=== PATIENT | female | born 1950 | race Caucasian/White ===

== ENCOUNTER → 2022-11-08 | Outpatient (CLI) | payer MEDICARE, OTHER, SELFPAY ==
[2022-11-08 15:51] LABS: Bacteria 0 SEEN /hpf (None Seen); Mucous, Urine 0 SEEN /hpf (<or=2+); Red Blood Cells-Urine 0 SEEN /hpf (0-5); White Blood Cells 0 SEEN /hpf (0-5)
[2022-11-08 16:25] LABS: Color, Urine Yellow (Yellow); Glucose, Dipstick 1000 mg/dl (Normal); Ketone-Dipstick Negative (Negative); Leukocyte Esterase-Dipstick Negative /ul (Negative); Nitrite-Dipstick Negative (Negative); Occult Blood-Urine Negative /ul (Negative); Protein-Dipstick Negative (Negative); Specific Gravity, Urine 1.015 (1.002-1.030); Urine Bilirubin Dipstick Negative (Negative); Urine Clarity Clear (Clear); Urine Urobilinogen Normal (Normal)
[2022-11-08 16:32] LABS: Squamous Epithelial Cells - UA 0-5 SEEN /hpf (5-10)
[2022-11-08 17:13] LABS: ALB/GLOB Ratio 0.9 RATIO (0.9-2.4); AST(SGOT) 16 U/L (15-37); Alanine Aminotransfer ALT/SGPT 21 U/L (13-56); Albumin, Serum 3.5 g/dL (3.2-5.0); Alkaline Phosphatase 68 U/L (45-117); Anion Gap 4 (5-15); BUN 20 mg/dL (7-18); BUN/Creat Ratio 18.3 RATIO (10-20); Calcium,Total 9.3 mg/dL (8.5-10.1); Chloride 104 mmol/L (98-107); Creatinine, Serum 1.09 mg/dL (0.55-1.02); EST Glomerular Filtration Rate 52 mL/min (>60); Est Glom Filt Rate - Afr Amer 63 mL/min (>60); Globulin 4.1 g/dL (2.2-4.2); Glucose 179 mg/dL (74-106); Magnesium 1.9 mg/dL (1.6-2.6); Potassium 3.8 mmol/L (3.5-5.1); Protein, Total 7.6 g/dL (6.4-8.2); Sodium Level 137 mmol/L (136-145)
== END | disposition home or self-care (01) ==
LOC: LAB 15:48
PROVIDERS: PCP Internal Medicine; Referring Provider Internal Medicine; Visit Provider Internal Medicine
DX: E11.9 Type 2 diabetes mellitus without complications (principal); G47.62 Sleep related leg cramps
CPT/HCPCS: 36415; 80053; 81001; 83735

== ENCOUNTER → 2023-05-01 | Outpatient (CLI) | payer MEDICARE, OTHER, SELFPAY ==
[2023-05-01 09:44] LABS: Absolute Lymphocyte Count 1.69 X10^3/uL (0.83-4.51); Absolute Neutrophil Count 5.3 X10^3/uL (2.0-7.7); Basophil# 0.04 X10^3/uL; Basophil% 0.5 % (0-1); Eosinophil# 0.21 X10^3/uL; Eosinophils% 2.7 % (0-5); Hematocrit 37.5 % (37-47); Hemoglobin 11.7 g/dL (12.0-15.0); Lymphocyte # 1.69 X10^3/ul (0.83-4.51); Lymphocyte % 21.8 % (19-41); Mean Corp Hgb Conc 31.2 g/dL (32-36); Mean Corpuscular Hgb 31.1 pg (27.0-32.0); Mean Corpuscular Volume 99.7 fL (81-99); Mean Platelet Vol. 10.3 fl (6.2-12.0); Monocyte# 0.52 X10^3/uL; Monocyte% 6.7 % (0-10); NRBC Flagged by Analyzer 0 % (0-5); Neutrophil # 5.28 X10^3/uL (2.7-7.7); Neutrophil % 67.9 % (47-70); Platelet Count 350 K/mm3 (150-450); RBC Distribution Width CV 13.4 % (11.6-14.6); RBC Distribution Width SD 49.2 fl (35.1-43.9); Red Blood Count 3.76 M/mm3 (4.2-5.4); White Blood Count 7.8 K/mm3 (4.4-11.0)
[2023-05-01 10:28] LABS: Vitamin D,25 Hydroxy 42.4 ng/mL
[2023-05-01 10:33] LABS: ALB/GLOB Ratio 0.8 RATIO (0.9-2.4); AST(SGOT) 9 U/L (15-37); Alanine Aminotransfer ALT/SGPT 20 U/L (13-56); Albumin, Serum 3.4 g/dL (3.2-5.0); Alkaline Phosphatase 69 U/L (45-117); Anion Gap 5 (5-15); BUN 25 mg/dL (7-18); BUN/Creat Ratio 21.2 RATIO (10-20); Calcium,Total 9.1 mg/dL (8.5-10.1); Chloride 106 mmol/L (98-107); Cholesterol 139 mg/dL (200); Creatinine, Serum 1.18 mg/dL (0.55-1.02); EST Glomerular Filtration Rate 48 mL/min (>60); Est Glom Filt Rate - Afr Amer 58 mL/min (>60); Free T3 1.7 pg/mL (2.18-3.98); Globulin 4.2 g/dL (2.2-4.2); Glucose 111 mg/dL (74-106); High Density Lipoprotein 35 mg/dL; Magnesium 2.1 mg/dL (1.6-2.6); Protein, Total 7.6 g/dL (6.4-8.2); Sodium Level 139 mmol/L (136-145); Thyroid Stim Hormone (TSH) 0.71 uIU/mL (0.358-3.74); Triglycerides 199 mg/dL; Very Low Density Lipoprotein 40 mg/dL (5-40)
== END | disposition home or self-care (01) ==
LOC: LAB 09:24
PROVIDERS: PCP Internal Medicine; Referring Provider Internal Medicine; Visit Provider Internal Medicine
DX: R73.9 Hyperglycemia, unspecified (principal); C73 Malignant neoplasm of thyroid gland; I10 Essential (primary) hypertension; E89.0 Postprocedural hypothyroidism; Z13.220 Encounter for screening for lipoid disorders; E55.9 Vitamin D deficiency, unspecified; G47.33 Obstructive sleep apnea (adult) (pediatric)
CPT/HCPCS: 36415; 80053; 80061; 82306; 83036; 83735; 84439; 84443; 84481; 85025

== ENCOUNTER → 2023-10-05 | Outpatient (CLI) | payer MEDICARE, OTHER, SELFPAY ==
--- NOTE | 2023-10-05 10:30 | BI_ITS ---
MAMMOGRAPHY - BILATERAL SCREENING REASON FOR EXAM: Female, 72 years old. Routine annual screening examination. PERTINENT HISTORY: Non-contributory. TECHNIQUE: Digital bilateral breast pratik (3D mammographic acquisition) in the CC and MLO projections. 2-D mediolateral oblique (MLO) and craniocaudad (CC) views of both breasts were obtained. CAD: Full Field Digital Mammography with Computer Added Detection was performed. COMPARISON: Comparison is made with prior outside examination dated August 30, 2021. FINDINGS: Breast Composition: The breasts are almost entirely fatty. There are no dominant masses or suspicious calcifications. No other significant abnormalities are identified. There has been no significant change since the prior study. BI/SCRN MAMM (CAD)W/PRATIK BILAT IMPRESSION: Stable bilateral screening mammogram. Yearly follow-up mammogram recommended. (A) ASSESSMENT CATEGORY: BIRADS Category 1: Negative. A letter regarding these results will be sent to the patient by the facility within 30 days. Approximately 10% of breast cancers are not detected by mammography. A normal mammogram should not delay biopsy of a clinically suspicious abnormality. [id number] Electronically Signed: Ben Eng MD at 11:08 EDT ,
--- OUTSIDE RECORDS SUMMARY | 2023-10-05 11:21 | XMS RPT_ITS | CCD ---
Author Name Unknown Address [address] [place] [address] Organization [facility] Care Team Providers Care Unattended Ground Sensor Specialist Name Role Phone Steve Cheek Unavailable Unavailable Unavailable Steve Cheek Primary Care Provider Steve Cheek Primary Care Provider [phone] Steve Cheek Primary Care Provider Dr. Keara Mike Attending Unav stephen Mike, Dr. Keara Velazco Primary Care Unav ailGRAEME Ayala Referring Unavailable GRAEME ESTEVEZ Attending Unavailable STEVE CHEEK Primary Care Unavailable LILIANA JAMA Attending Unavailable STEVE CHEEK Primary Care Unavailable LILIANA JAMA Referring Unavailable STEVE CHEEK Primary Care Unavailable LILIANA JAMA Attending Unavailable STEVE CHEEK Primary Care Unavailable LILIANA JAMA Referring Unavailable STEVE CHEEK Primary Care Unavailable LILIANA JAMA Attending Unavailable YELENA STOUT Referring Unavailable STEVE CHEEK Primary Care Unavailable STEVE CHEEK Primary Care Unavailable LILIANA JAMA Referring Unavailable STEVE CHEEK Primary Care Unavailable LILIANA JAMA Referring Unavailable Allergies Allergy Classification Reported Allergen(s) Allergy Type Date of Onset Reaction(s) Facility (10 sources) environmental [Other] Propensity to adverse reactions 1 Other: See Comments [facility] Work Phone: (1 source) OTHER; Translations: [OTHER] Propensity to adverse reactions (disorder) 1 [facility] Repository Medications Completed/Discontinued Medications Medication Drug Class(es) Dates Sig (Normalized) Sig (Original) aspirin 81 mg delayed release oral tablet (12 sources) Platelet Aggregation Inhibitor, Nonsteroidal Anti-inflammatory Drug Start: 02-13-2012 take 1 tablet by mouth once daily aspirin, enteric coated (ECOTRIN LOW STRENGTH) 81 mg EC tablet Take 1 tablet by mouth once daily. 0 02/13/2012 Active Problems Active Problems Problem Classification Problem Date Documented Date Episodic/Chronic Benign neoplasm of uterus (2 sources) Uterine leiomyoma; Translations: [Leiomyoma of uterus, unspecified] Episodic Calculus of urinary tract (2 sources) History of calculus of kidney; Translations: [Personal history of urinary calculi] Episodic Cancer of thyroid (17 sources) Malignant tumor of thyroid gland; Translations: [Malignant neoplasm of thyroid gland] Onset: 06-24-2010 07-26-2015 Chronic Chronic kidney disease (2 sources) Chronic kidney disease stage 3; Translations: [Chronic kidney disease, Stage III (moderate)] Chronic Complications of surgical procedures or medical care (2 sources) Postoperative hypothyroidism; Translations: [Postsurgical hypothyroidism] Chronic Deficiency and other anemia (2 sources) Chronic anemia; Translations: [Anemia, unspecified] Episodic Diabetes mellitus with complications (8 sources) Hyperglycemia due to type 2 diabetes mellitus; Translations: [Diabetes mellitus without mention of complication, type II or unspecified type, not stated as uncontrolled] Onset: 09-06-2023 09-06-2023 Chronic Past or Other Problems Problem Classification Problem Date Documented Date Episodic/Chronic Cancer of thyroid (2 sources) History of malignant neoplasm of thyroid; Translations: [Personal history of malignant neoplasm of thyroid] Resolved: 08-12-2019 Episodic Other connective tissue disease (2 sources) History of polymyalgia rheumatica; Translations: [Personal history of other musculoskeletal disorders] Resolved: 08-12-2019 Episodic Residual codes; unclassified (4 sources) Past history of procedure; Translations: [Other specified personal history presenting hazards to health] Onset: 06-17-2010 Episodic Results Test Name Value Interpretation Reference Range Facil ity Vital Signs Date Time Vital Sign Value Performing Clinician Roger ruffin 09-15-2022 09:53-0500 Body weight 96.16 kg Liliana Jama MD Work Phone: [facility] 09-15-2022 09:53-0500 Diastolic blood pressure 68 mm[Hg] Liliana Jama MD Work Phone: [facility] 09-15-2022 09:53-0500 Heart rate 78 /min Liliana Jama MD Work Phone: [facility] 09-15-2022 09:53-0500 Systolic blood pressure 132 mm[Hg] Liliana Jama MD Work Phone: [facility] 03-17-2022 09:52-0400 Body weight 94.03 kg Liliana Jama MD Work Phone: [facility] 03-17-2022 09:52-0400 Diastolic blood pressure 57 mm[Hg] Liliana Jama MD Work Phone: [facility] 03-17-2022 09:52-0400 Heart rate 79 /min Liliana Jama MD Work Phone: [facility] 03-17-2022 09:52-0400 Systolic blood pressure 146 mm[Hg] Liliana Jama MD Work Phone: [facility] 12-28-2021 16:02-0400 Body weight 96.84 kg Liliana Jama MD Work Phone: [facility] 12-28-2021 16:02-0400 Diastolic blood pressure 68 mm[Hg] Liliana Jama MD Work Phone: [facility] 12-28-2021 16:02-0400 Heart rate 76 /min Liliana Jama MD Work Phone: [facility] 12-28-2021 16:02-0400 Systolic blood pressure 152 mm[Hg] Liliana Jama MD Work Phone: [facility] Encounters Encounter Date Encounter Type Care Provider Facility Start: 09-06-2023 Telephone encounter Liliana cabrera MD Work Phone: Endocrinology Irene Procedures Date Procedure Procedure Detail Performing Clinician Start: 09-15-2022 Us soft tissue head & neck real time imge docm Liliana Jama MD Work Phone: Start: 09-15-2022 Hemoglobin A1c/Hemoglobin.total in Blood Liliana Jama MD Work Phone: Start: 09-06-2022 Mammography Liliana velazquez MD Work Phone: Start: 03-20-2016 Colonoscopy Liliana velazquez MD Work Phone: Start: 03-20-2016 Colonoscopy Steve arndt Work Phone: Start: 07-06-2011 Mammography Liliana velazquez MD Work Phone: Start: 02-20-2011 Colonoscopy Liliana velazquez MD Work Phone: Thyroidectomy Steve Cheek Work Phone: Plan of Treatment Date Care Activity Detail Author Start: 08-21-2024 Hepatitis B screening Urine Albumin:Creatinine Ratio [facility] Start: 07-14-2024 Urine microalbumin profile DTaP,Tdap,Td Vaccine (2 - Tdap) [facility] Start: 03-06-2024 End: 06-05-2024 EXTRA TUBES EXTRA TUBES Lab STAT Thyroid cancer (HCC) Expected: 03/06/2024 (Approximate), Expires: 06/05/2024 [facility] Work Phone: Immunizations Immunization Date Immunization Notes Care Provider Elijah hu 05-17-2022 influenza virus vacc ine, unspecified formulation Liliana Jama MD Work Phone: [facility] 10-12-2020 Pfizer-BioNTech COVI D-19 Vacc 30 MCG/0.3ML Intramuscular Suspension Steve Cheek Work Phone: [facility] DO Work Phone: 09-20-2020 Pfizer-BioNTech COVI D-19 Vacc 30 MCG/0.3ML Intramuscular Suspension Steve Cheek Work Phone: [facility] 205 DO Work Phone: 05-27-2020 Fluzone High-Dose Quadrivalent 0.7 ML Intramuscular Suspension Prefilled Syringe; Translations: [Fluzone High-Dose Quadrivalent 0.7 ML Intramuscular Suspension Prefilled Syringe] Steve Cheek Work Phone: [facility] 205 DO Work Phone: Payers Date Payer Category Payer Unknown [id number] 2019 Unknown 2019 Unknown MMO MMO MEDICARE SUPPLEMENT [id number] 2019-Present [phone] [address] [place] [address] Indemnity [id number] 2017 Medicare MEDICARE MEDICAR E A AND B [id number] 2017-Present [phone] [address] [address] [place] [address] Medicare [id number] 2017 Medicare MEDICARE MEDICAR E A AND B [id number] 2017-Present [phone] [address] [address] [place] [address] Medicare [id number] 2014 Medicare [id number] 1950 Unknown [id number] 1950 Unknown [id number] 1950 Unknown [id number] Social History Date Type Detail Facility Start: 12-26-2011 End: 06-27-2020 Occasional caffeine consumption Occasional caffeine consumption [facility] DO Work Phone: Start: 12-26-2011 End: 03-17-2022 Tobacco smoking status NHIS Ex-smoker [facility] Work Phone: End: 12-26-1979 History of tobacco use Current smoker [facility] Work Phone: End: 12-26-1979 History of tobacco use Cigarette Smoker [facility] Work Phone: Start: 12-26-2011 End: 03-17-2022 Tobacco use and exposure Smokeless tobacco non-user [facility] Work Phone: Start: 12-28-2021 End: 03-17-2022 Alcohol intake Current non-drinker of alcohol (finding) [facility] Start: 1950 Sex Assigned At Not on file [facility] Start: 06-27-2020 End: 03-17-2022 Tobacco use panel [facility] National Score (1-10 0), lower number is lower risk Not on file [facility] Medical Equipment Procedure Code Equipment Code Equipment Origin al Text Equipment Identifier Dates use 4x/d with insulin pen Start: 09-16-2021 End: 03-15-2023 Clinical Notes 12-28-2021 to 09-10-2023 Telephone Encounter - Kyle Campoverde - 09/10/2023 12:38 PM ESTTelephone Encounter - Kyle Campoverde - 09/07/2023 12:22 PM ESTTelephone Encounter - Bernice Soler - 09/06/2023 1:26 PM EST Note Date & Type Note Facility 09-10-2023 Miscellaneous Notes Formattin g of this note might be different from the original. Patient scheduled 2nd attempt Left message to call office to schedule with Evita 09/07/2023 12:22 PM 1st attempt Vm left Please call patient and help them make virtual appointment with me in 3 months, and in-person appointment in 6 months documented in this encounter [facility] 09-06-2023 Note HNO ID: [id number] Author: LILIANA JAMA MD Service: ? Author Type: Physician Type: Progress Notes Filed: 09/06/2023 12:59 Note Text: Virtual Visit utilizing both audio and video components FaceTime I have communicated my name and active licensure. The patient's identity and physical location were verified at the time of this visit. Either the patient or their legal appliance service representative has been informed of the risks and benefits of -- and alternatives to -- treatment through a remote evaluation and consents to proceed with the evaluation remotely. Patient location: [place], [place] Assessment / Plan Problem: 1) Diabetes type 2. HbA1c continues to be reasonable, will keep her on current Rx. 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 from [place] on 07/09/23. 2) Thyroid CA, TG by QUINTIN has been stable, but this last 2 times was checked using new assay at [facility], which shows that TG was undetectable. Will go back to checking TG by QUINTIN at [facility] 3) s/p COVID vaccination x 5 ([employer]), including bivalent 04/12/22. COVID April 2020. Treatment / Plan: 1) increase Basaglar to 26 units daily at noon 2) [place] [facility] [place] [facility] [place] by virtual visit 3) [place] to [facility] [place] 6 months in person, with labs beforehand Liliana Jama MD iPhone = [employer] [phone] Data Review: Component Latest Ref Rng AND Units 08/02/2023 08/21/2023 Protein, Total 6.3 - 8.0 g/dL 7.5 Albumin 3.9 - 4.9 g/dL 4.2 Calcium 8.5 - 10.2 mg/dL 9.7 Bilirubin, Total 0.2 - 1.3 mg/dL 0.2 Alkaline Phosphatase 34 - 123 U/L 72 AST 13 - 35 U/L 10 (L) ALT 7 - 38 U/L 10 Glucose 74 - 99 mg/dL 143 (H) BUN 7 - 21 mg/dL 29 (H) Creatinine 0.58 - 0.96 mg/dL 1.09 (H) Sodium 136 - 144 mmol/L 140 Potassium 3.7 - 5.1 mmol/L 4.0 Chloride 97 - 105 mmol/L 102 CO2 22 - 30 mmol/L 25 Anion Gap 9 - 18 mmol/L 13 eGFR >=60 mL/min/1.73mA? 54 (L) Albumin/Creat Ratio <30 mg/g 17 Hemoglobin A1C 4.3 - 5.6 % 7.7 (H) Free T4 0.9 - 1.7 ng/dL 1.5 TSH 0.270 - 4.200 mIU/L 1.630 History Problem name: diabetes Quality: type 2, Severity: sugars in Duration: dx 1999 Context: 1) eye exam, told no DM changes, around 04/2021 2) no hx [place], stroke, no known renal disease, 3) no resting acral dysesthesias. Nonsmoker 4) severe BENEDICT, uses CPAP every day, says it helps 5) thyroid CA, history shown below, taking 125 mcg daily 6) hx COVID dx [place] 04/29/20 Modifying factors: 1) Basaglar 24 units at lunch, meal Humalog=01-30-11, metformin ER 850mg 3x/d, Farxiga 10mg in AM 2) pravastatin 80mg at bed, 3) losartan 100mg/d 4) levothyroxine 125mcg daily Associated symptoms: says feels good. s/p COVID vaccine x 5 Thyroid CA History Surgery (05/17/10): total thyroidectomy, Dr. Julio Cesar Moore (02/08/12): right modified radical neck dissection to remove lymph nodes, Dr. Jef Hardy Pathology (05/17/10): papillary thyroid CA, follicular variant, multifocal bilateral, 1.5cm on right, 0.3 and 0.4cvm on left, capsular invasion present, but no invasion outside the thyroid capsule. T1b, N0, MX (11/24/11): right neck node FNA, positive for malignant cells: metastatic papillary thyroid CA (02/08/12): right mod rad neck dissection: metastatic papillary thyroid CA, 4 of 14 nodes positive, no extranodal extension identified, largest involved node 1.2cm diameter Scan (09/23/10): post-therapy 131-Iodine scan, focal uptake in lower neck, no evidence of metastasis, Thyrogen stim (10/16/12): Thyrogen stimulated 123-Iodine body scan, no evidence of local or distant metastasis [facility] (09/15/10): treatment 101.0 mCi 131-Iodine, Thyrogen stim Thyroglobulin (06/02/10): TG <0.5 ng/ml, Oy=692 IU/ml (09/15/10): TG QUINTIN=6.0 ng/ml, Ab=20 U/ml, Thyrogen stim (01/03/11): TG QUINTIN=3.3 ng/ml, Ab=26 U/ml (08/01/11): TG QUINTIN=3.0 ng/ml, Ab=17 U/ml (02/01/12): TG QUINTIN=2.6 ng/ml, Ab=19 U/ml (06/11/12): TG QUINTIN=12.0 ng/ml, Na=201 IU/ml done at [facility] (doubt these results) (10/18/12): TG QUINTIN=3.0 ng/ml, Ab=10.3 U/ml, Thyrogen stim (11/04/12): TG QUINTIN=2.9 ng/ml, Ab=13.2 U/ml (04/29/13): TG QUINTIN=2.5 ng/ml, Ab=10.0 U/ml (11/28/13): TG QUINTIN=2.5 ng/ml, Ab=15.0 U/ml (06/12/14): TG QUINTIN=2.8 ng/ml, Ab=14.0 U/ml (12/11/14): TG QUINTIN=2.6 ng/ml, Ab=14.4 U/ml (06/21/15): TG QUINTIN=2.50 ng/ml, Ab=19.0 U/ml (12/27/15): TG QUINTIN=2.50 ng/ml, Ab=24.0 U/ml (12/27/16): TG QUINTIN=2.60 ng/ml, Ab=19.0 U/ml (06/27/17): TG QUINTIN=2.70 ng/ml, Ab=19 U/ml Component Thyroglobulin TG Antibody Screen Ref Rng 1.6 - 59.9 ng/mL <14.4 IU/mL 01/01/2018 QUINTIN at [facility] <0.2 (L) 86.0 (H) 06/06/18 2.20 20.0 12/17/18 <0.2 77.1 01/30/19 2.00 21.0 07/03/2019 2.80 21.0 01/06/2020 2.70 28.0 01/06/2020 2.50 30.0 01/25/2021 2.20 23.0 08/12/2021 2.80 28.0 01/31/2022 Flor Assay 2.20 25.0 08/18/2022 <0.5 13.8 02/26/2023 <0.5 14.5 Vitamin D Component Vitamin D 25 Hydroxy Latest Ref Rng 31.0 - 80.0 ng/mL 04/29/2013 48.5 11/28/2013 38.5 11 (more content not included)... [facility] 09-06-2023 Instructions Liliana Jama MD - 09/06/2023 12:59 PM EST Assessment / Plan Problem: 1) Diabetes type 2. HbA1c continues to be reasonable, will keep her on current Rx. 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 [place] on 07/09/23. 2) Thyroid CA, TG by QUINTIN has been stable, but this last 2 times was checked using new assay at [facility], which shows that TG was undetectable. Will go back to checking TG by QUINTIN at [facility] 3) s/p COVID vaccination x 5 ([employer]), including bivalent 04/12/22. COVID April 2020. Treatment / Plan: 1) increase Basaglar to 26 units daily at noon 2) return to me in 3+ months by virtual visit 3) [place] [facility] [place] [facility] [place] in person, with labs beforehand Liliana Jama MD documented in this encounter [facility] 09-06-2023 History of Presen t illness Narrative Virtual Visit utilizing both audio and video components FaceTime I have communicated my name and active licensure. The patient's identity and physical location were verified at the time of this visit. Either the patient or their legal appliance service representative has been informed of the risks and benefits of -- and alternatives to -- treatment through a remote evaluation and consents to proceed with the evaluation remotely. Patient location: [place], [place] Assessment / Plan Problem: 1) Diabetes type 2. HbA1c continues to be reasonable, will keep her on current Rx. 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 from [place] on 07/09/23. 2) Thyroid CA, TG by QUINTIN has been stable, but this last 2 times was checked using new assay at [facility], which shows that TG was undetectable. Will go back to checking TG by QUINTIN at [facility] 3) s/p COVID vaccination x 5 ([employer]), including bivalent 04/12/22. COVID April 2020. Treatment / Plan: 1) increase Basaglar to 26 units daily at noon 2) return to [facility] in [facility] months by virtual visit 3) return to [facility] in 6 months in person, with labs beforehand Liliana Jama MD iPhone = [facility] [phone] Data Review: Component Latest Ref Rng & Units 08/02/2023 08/21/2023 Protein, Total 6.3 - 8.0 g/dL 7.5 Albumin 3.9 - 4.9 g/dL 4.2 Calcium 8.5 - 10.2 mg/dL 9.7 Bilirubin, Total 0.2 - 1.3 mg/dL 0.2 Alkaline Phosphatase 34 - 123 U/L 72 AST 13 - 35 U/L 10 (L) ALT 7 - 38 U/L 10 Glucose 74 - 99 mg/dL 143 (H) BUN 7 - 21 mg/dL 29 (H) Creatinine 0.58 - 0.96 mg/dL 1.09 (H) Sodium 136 - 144 mmol/L 140 Potassium 3.7 - 5.1 mmol/L 4.0 Chloride 97 - 105 mmol/L 102 CO2 22 - 30 mmol/L 25 Anion Gap 9 - 18 mmol/L 13 eGFR >=60 mL/min/1.73m 54 (L) Albumin/Creat Ratio <30 mg/g 17 Hemoglobin A1C 4.3 - 5.6 % 7.7 (H) Free T4 0.9 - 1.7 ng/dL 1.5 TSH 0.270 - 4.200 mIU/L 1.630 History Problem name: diabetes Quality: type 2, Severity: sugars in Duration: 1999 Context: 1) eye exam, told no DM changes, around 04/2021 2) no hx [place], stroke, no known renal disease, 3) no resting acral dysesthesias. Nonsmoker 4) severe BENEDICT, uses CPAP every day, says it helps 5) thyroid CA, history shown below, taking 125 mcg daily 6) hx COVID dx Ling 04/29/20 Modifying factors: 1) Basaglar 24 units at lunch, meal Humalog=01-30-11, metformin ER 850mg 3x/d, Farxiga 10mg in AM 2) pravastatin 80mg at bed, 3) losartan 100mg/d 4) levothyroxine 125mcg daily Associated symptoms: says feels good. s/p COVID vaccine x 5 Thyroid CA History Surgery (05/17/10): total thyroidectomy, Dr. Julio Cesar Moore (02/08/12): right modified radical neck dissection to remove lymph nodes, Dr. Jef Hardy Pathology (05/17/10): papillary thyroid CA, follicular variant, multifocal bilateral, 1.5cm on right, 0.3 and 0.4cvm on left, capsular invasion present, but no invasion outside the thyroid capsule. T1b, N0, MX (11/24/11): right neck node FNA, positive for malignant cells: metastatic papillary thyroid CA (02/08/12): right mod rad neck dissection: metastatic papillary thyroid CA, 4 of 14 nodes positive, no extranodal extension identified, largest involved node 1.2cm diameter Scan (09/23/10): post-therapy 131-Iodine scan, focal uptake in lower neck, no evidence of metastasis, Thyrogen stim (10/16/12): Thyrogen stimulated 123-Iodine body scan, no evidence of local or distant metastasis [facility] (09/15/10): treatment 101.0 mCi 131-Iodine, Thyrogen stim Thyroglobulin (06/02/10): TG <0.5 ng/ml, Uy=610 IU/ml (09/15/10): TG QUINTIN=6.0 ng/ml, Ab=20 U/ml, Thyrogen stim (01/03/11): TG QUINTIN=3.3 ng/ml, Ab=26 U/ml (08/01/11): TG QUINTIN=3.0 ng/ml, Ab=17 U/ml (02/01/12): TG QUINTIN=2.6 ng/ml, Ab=19 U/ml (06/11/12): TG QUINTIN=12.0 ng/ml, Au=673 IU/ml done at [facility] (doubt these results) (10/18/12): TG QUINTIN=3.0 ng/ml, Ab=10.3 U/ml, Thyrogen stim (11/04/12): TG QUINTIN=2.9 ng/ml, Ab=13.2 U/ml (04/29/13): TG QUINTIN=2.5 ng/ml, Ab=10.0 U/ml (11/28/13): TG QUINTIN=2.5 ng/ml, Ab=15.0 U/ml (06/12/14): TG QUINTIN=2.8 ng/ml, Ab=14.0 U/ml (12/11/14): TG QUINTIN=2.6 ng/ml, Ab=14.4 U/ml (06/21/15): TG QUINTIN=2.50 ng/ml, Ab=19.0 U/ml (12/27/15): TG QUINTIN=2.50 ng/ml, Ab=24.0 U/ml (12/27/16): TG QUINTIN=2.60 ng/ml, Ab=19.0 U/ml (06/27/17): TG QUINTIN=2.70 ng/ml, Ab=19 U/ml Component Thyroglobulin TG Antibody Screen Ref Rng 1.6 - 59.9 ng/mL <14.4 IU/mL 01/01/2018 QUINTIN at [facility] <0.2 (L) 86.0 (H) 06/06/18 2.20 20.0 12/17/18 <0.2 77.1 01/30/19 2.00 21.0 07/03/2019 2.80 21.0 01/06/2020 2.70 28.0 01/06/2020 2.50 30.0 01/25/2021 2.20 23.0 08/12/2021 2.80 28.0 01/31/2022 Flor Assay 2.20 25.0 08/18/2022 <0.5 13.8 02/26/2023 <0.5 14.5 Vitamin D Component Vitamin D 25 Hydroxy Latest Ref Rng 31.0 - 80.0 ng/mL 04/29/2013 48.5 11/28/2013 38.5 06/12/2014 33.4 12/11/2014 33.6 06/21/2015 37.2 Ultrasound (06/24/10): no suspicious adenopathy along great vessels or in lateral neck on either side. No masses in thyroid bed. (08/14/11): suspicious nodule right neck at level of bifurcation, is 1.0 x 0.8 x 0.7cm, nonvascular, needs FNA (08/30/12): no suspicious adenopathy along great vessels or in lateral neck on either side. No masses in thyroid bed. (06/23/13): no suspicious adenopathy along great vessels or in lateral neck on either side. No masses in thyroid bed. (07/26/15): no suspicious adenopathy along great vessels or in lateral neck on either side. No masses in thyroid bed. (07/31/16): no suspicious adenopathy along great vessels or in lateral neck on either side. No masses in thyroid bed. (08/01/17): no suspicious adenopathy along great vessels or in lateral neck on either side. No masses in thyroid bed. (07/24/18): no suspicious adenopathy along great vessels or in lateral neck on either side. No masses in thyroid bed. (08/08/19): no suspicious adenopathy along great vessels or in lateral neck on either side. No masses in thyroid bed. (08/25/20): no suspicious adenopathy along great vessels or in lateral neck on either side. No masses in thyroid bed. (09/16/21): no suspicious adenopathy along great vessels or in lateral neck on either side. No masses in thyroid bed. (09/15/22): no suspicious adenopathy along great vessels or in lateral neck on either side. No masses in thyroid bed. ROS PHYSICAL EXAM PAST MEDICAL HISTORY PAST MEDICAL HISTORY Diagnosis Date Diabetes (HCC) BENEDICT (obstructive sleep apnea) 05/03/2011 Postsurgical hypothyroidism Thyroid cancer (HCC) PAST SURGICAL HISTORY PAST SURGICAL HISTORY Procedure Laterality Date OTHER 2011 Neck dissection THYROIDECTOMY TOTAL/COMPLETE 2009 FAMILY HISTORY No family history on file. SOCIAL HISTORY Social History Tobacco Use Smoking status: Former Packs/day: 0.50 Years: 8.00 Additional pack years: 0.00 Total pack years: 4.00 Types: Cigarettes Quit date: 12/26/1979 Years since quittin.7 Smokeless tobacco: Never Substance Use Topics Alcohol use: No Drug use: No MEDICATIONS Prior to Admission Medications: Current Outpatient Prescriptions on File Prior to Visit: levothyroxine (SYNTHROID) 150 mcg tablet Take 1 tablet by mouth once daily. glyBURIDE-metFORmin (GLUCOVANCE) 5-500 mg per tablet Take 2 tablets by mouth twice daily with meals. aspirin, enteric coated (ECOTRIN LOW STRENGTH) 81 mg EC tablet Take 1 tablet by mouth once daily. pravastatin (PRAVACHOL) 80 mg ORAL tablet Take 1 tablet by mouth once daily. zolpidem (AMBIEN) 10 mg ORAL Tab Take 1 tablet by mouth at bedtime as needed. for insomnia. COMPOUNDED PRESCRIPTION CPAP setting at 5 cm H2O with heated humidification mask (per patient preference) and lifetime supplies DX BENEDICT 327.23 Ferrous Sulfate (IRON) 325 mg (65 mg iron) ORAL tablet Take 1 tablet by mouth twice daily. lisinopril 10 mg ORAL tablet Take one(1) tablet daily. valsartan (DIOVAN) 160 mg ORAL tablet Take one(1) tablet daily. sitagliptin (JANUVIA) 100 mg ORAL tablet Take one(1) tablet daily. No current facility-administered medications on file prior to visit. ALLERGIES ALLERGIES Allergen Reactions Environmental [Othe* Other: See Comments Contact with cold air or cold objects causes a rash. Medical Decision Making: Medical Decision Making Level: 1 - N/A documented in this encounter [facility] 06-08-2023 Miscellaneous Notes Formattin g of this note might be different from the original. Noted in blue sticky Maren Connell RN Patient calling in stating that her insurance company informed her that they will no longer be covering the brand name Novolog as of 07-23-23. Patient stated that Dr. Jama is the Man, let him choose what Insulin I should be on. Patient # [phone]. Thank you Kaylene Monterroso documented in this encounter [facility] 03-15-2023 Note HNO ID: [id number] Author: Liliana Jama MD Service: ? Author Type: Physician Type: Progress Notes Filed: 03/15/2023 12:15 PM Note Text: Virtual Visit utilizing both audio and video components FaceTlj I have communicated my name and active licensure. The patient's identity and physical location were verified at the time of this visit. Either the patient or their legal appliance service representative has been informed of the risks and benefits of -- and alternatives to -- treatment through a remote evaluation and consents to proceed with the evaluation remotely. Patient location: [place], [place] Assessment / Plan Problem: 1) Diabetes type 2. HbA1c continues to be reasonable, will keep her on current Rx. 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 2) Thyroid CA, TG by QUINTIN has been stable, but this last 2 times was checked using new assay at [facility], which shows that TG was undetectable. Will go back to checking TG by QUINTIN at [facility] 3) s/p COVID vaccination x 5 ([employer]), including bivalent 04/12/22. COVID April 2020. Treatment / Plan: 1) contiue on your current diabetes medications, and on your current levothyroxine dose of 125 mcg daily 2) return to me in 6 by virtual visit Liliana Jama MD iPhone = Goldie [phone] Data Review: Component Hemoglobin A1C Latest Ref Rng AND Units 4.3 - 5.6 % 12/13/2022 7.2 (H) History Problem name: diabetes Quality: type 2, Severity: sugars in Duration: dx 1999 Context: 1) eye exam, told no DM changes, around 04/2021 2) no hx [place], stroke, no known renal disease, 3) no resting acral dysesthesias. Nonsmoker 4) severe BENEDICT, uses CPAP every day, says it helps 5) thyroid CA, history shown below, taking 125 mcg daily 6) hx COVID dx [place] 04/29/20 Modifying factors: 1) Basaglar 24 units at lunch, meal Humalog=01-30-11, metformin ER 850mg 3x/d, Farxiga 10mg in AM 2) pravastatin 80mg at bed, 3) losartan 100mg/d 4) levothyroxine 125mcg daily Associated symptoms: says feels good. Not having low sugars. Says lowest 120. prostate CA, getting pluvecto (177-Rhoda vipivotide tetraxetan) IV s/p COVID vaccine x 5 Thyroid CA History Surgery (05/17/10): total thyroidectomy, Dr. Julio Cesar Moore (02/08/12): right modified radical neck dissection to remove lymph nodes, Dr. Jef Hardy Pathology (05/17/10): papillary thyroid CA, follicular variant, multifocal bilateral, 1.5cm on right, 0.3 and 0.4cvm on left, capsular invasion present, but no invasion outside the thyroid capsule. T1b, N0, MX (11/24/11): right neck node FNA, positive for malignant cells: metastatic papillary thyroid CA (02/08/12): right mod rad neck dissection: metastatic papillary thyroid CA, 4 of 14 nodes positive, no extranodal extension identified, largest involved node 1.2cm diameter Scan (09/23/10): post-therapy 131-Iodine scan, focal uptake in lower neck, no evidence of metastasis, Thyrogen stim (10/16/12): Thyrogen stimulated 123-Iodine body scan, no evidence of local or distant metastasis GARDINER (09/15/10): treatment 101.0 mCi 131-Iodine, Thyrogen stim Thyroglobulin (06/02/10): TG <0.5 ng/ml, Vn=628 IU/ml (09/15/10): TG QUINTIN=6.0 ng/ml, Ab=20 U/ml, Thyrogen stim (01/03/11): TG QUINTIN=3.3 ng/ml, Ab=26 U/ml (08/01/11): TG QUINTIN=3.0 ng/ml, Ab=17 U/ml (02/01/12): TG QUINTIN=2.6 ng/ml, Ab=19 U/ml (06/11/12): TG QUINTIN=12.0 ng/ml, Oy=147 IU/ml done at [facility] (doubt these results) (10/18/12): TG QUINTIN=3.0 ng/ml, Ab=10.3 U/ml, Thyrogen stim (11/04/12): TG QUINTIN=2.9 ng/ml, Ab=13.2 U/ml (04/29/13): TG QUINTIN=2.5 ng/ml, Ab=10.0 U/ml (11/28/13): TG QUINTIN=2.5 ng/ml, Ab=15.0 U/ml (06/12/14): TG QUINTIN=2.8 ng/ml, Ab=14.0 U/ml (12/11/14): TG QUINTIN=2.6 ng/ml, Ab=14.4 U/ml (06/21/15): TG QUINTIN=2.50 ng/ml, Ab=19.0 U/ml (12/27/15): TG QUINTIN=2.50 ng/ml, Ab=24.0 U/ml (12/27/16): TG QUINTIN=2.60 ng/ml, Ab=19.0 U/ml (06/27/17): TG QUINTIN=2.70 ng/ml, Ab=19 U/ml Component Thyroglobulin TG Antibody Screen Ref Rng 1.6 - 59.9 ng/mL <14.4 IU/mL 01/01/2018 QUINTIN at [facility] <0.2 (L) 86.0 (H) 06/06/18 2.20 20.0 12/17/18 <0.2 77.1 01/30/19 2.00 21.0 07/03/2019 2.80 21.0 01/06/2020 2.70 28.0 01/06/2020 2.50 30.0 01/25/2021 2.20 23.0 08/12/2021 2.80 28.0 01/31/2022 Flor Assay 2.20 25.0 08/18/2022 <0.5 13.8 02/26/2023 <0.5 14.5 Vitamin D Component Vitamin D 25 Hydroxy Latest Ref Rng 31.0 - 80.0 ng/mL 04/29/2013 48.5 11/28/2013 38.5 06/12/2014 33.4 12/11/2014 33.6 06/21/2015 37.2 Ultrasound (06/24/10): no suspicious adenopathy along great vessels or in lateral neck on either side. No masses in thyroid bed. (08/14/11): suspicious nodule right neck at level of bifurcation, is 1.0 x 0.8 x 0.7cm, nonvascular, needs FNA (08/30/12): no suspicious adenopathy along great vessels or in lateral neck on either side. No masses in thyroid bed. (06/23/13): no suspicious adenopathy along great vessels or in lateral neck on either side. No masses i (more content not included)... [facility] 03-15-2023 Instructions Liliana Jama MD - 03/15/2023 12:15 PM EDT Assessment / Plan Problem: 1) Diabetes type 2. HbA1c continues to be reasonable, will keep her on current Rx. 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 2) Thyroid CA, TG by QUINTIN has been stable, but this last 2 times was checked using new assay at [facility], which shows that TG was undetectable. Will go back to checking TG by QUINTIN at [facility] 3) s/p COVID vaccination x 5 ([employer]), including bivalent 04/12/22. COVID April 2020. Treatment / Plan: 1) contiue on your current diabetes medications, and on your current levothyroxine dose of 125 mcg daily 2) return to me in 6 by virtual visit Liliana Jama MD documented in this encounter [facility] 03-15-2023 History of Presen t illness Narrative Virtual Visit utilizing both audio and video components FaceTime I have communicated my name and active licensure. The patient's identity and physical location were verified at the time of this visit. Either the patient or their legal appliance service representative has been informed of the risks and benefits of -- and alternatives to -- treatment through a remote evaluation and consents to proceed with the evaluation remotely. Patient location: [place], [place] Assessment / Plan Problem: 1) Diabetes type 2. HbA1c continues to be reasonable, will keep her on current Rx. 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 2) Thyroid CA, TG by QUINTIN has been stable, but this last 2 times was checked using new assay at [facility], which shows that TG was undetectable. Will go back to checking TG by QUINTIN at [facility] 3) s/p COVID vaccination x 5 ([employer]), including bivalent 04/12/22. COVID April 2020. Treatment / Plan: 1) contiue on your current diabetes medications, and on your current levothyroxine dose of 125 mcg daily 2) [place] visit Liliana Jama MD iPhone = [facility] [phone] Data Review: Component Hemoglobin A1C Latest Ref Rng & Units 4.3 - 5.6 % 12/13/2022 7.2 (H) History Problem name: diabetes Quality: type 2, Severity: sugars in Duration: dx 1999 Context: 1) eye exam, told no DM changes, around 04/2021 2) no hx [place], stroke, no known renal disease, 3) no resting acral dysesthesias. Nonsmoker 4) severe BENEDICT, uses CPAP every day, says it helps 5) thyroid CA, history shown below, taking 125 mcg daily 6) hx COVID dx [place] 04/29/20 Modifying factors: 1) Basaglar 24 units at lunch, meal Humalog=01-30-11, metformin ER 850mg 3x/d, Farxiga 10mg in AM 2) pravastatin 80mg at bed, 3) losartan 100mg/d 4) levothyroxine 125mcg daily Associated symptoms: says feels good. Not having low sugars. Says lowest 120. prostate CA, getting pluvecto (177-Rhoda vipivotide tetraxetan) IV s/p COVID vaccine x 5 Thyroid CA History Surgery (05/17/10): total thyroidectomy, Dr. Julio Cesar Moore (02/08/12): right modified radical neck dissection to remove lymph nodes, Dr. Jef Hardy Pathology (05/17/10): papillary thyroid CA, follicular variant, multifocal bilateral, 1.5cm on right, 0.3 and 0.4cvm on left, capsular invasion present, but no invasion outside the thyroid capsule. T1b, N0, MX (11/24/11): right neck node FNA, positive for malignant cells: metastatic papillary thyroid CA (02/08/12): right mod rad neck dissection: metastatic papillary thyroid CA, 4 of 14 nodes positive, no extranodal extension identified, largest involved node 1.2cm diameter Scan (09/23/10): post-therapy 131-Iodine scan, focal uptake in lower neck, no evidence of metastasis, Thyrogen stim (10/16/12): Thyrogen stimulated 123-Iodine body scan, no evidence of local or distant metastasis GARDINER (09/15/10): treatment 101.0 mCi 131-Iodine, Thyrogen stim Thyroglobulin (06/02/10): TG <0.5 ng/ml, Ct=859 IU/ml (09/15/10): TG QUINTIN=6.0 ng/ml, Ab=20 U/ml, Thyrogen stim (01/03/11): TG QUINTIN=3.3 ng/ml, Ab=26 U/ml (08/01/11): TG QUINTIN=3.0 ng/ml, Ab=17 U/ml (02/01/12): TG QUINTIN=2.6 ng/ml, Ab=19 U/ml (06/11/12): TG QUINTIN=12.0 ng/ml, Wm=273 IU/ml done at [facility] (doubt these results) (10/18/12): TG QUINTIN=3.0 ng/ml, Ab=10.3 U/ml, Thyrogen stim (11/04/12): TG QUINTIN=2.9 ng/ml, Ab=13.2 U/ml (04/29/13): TG QUINTIN=2.5 ng/ml, Ab=10.0 U/ml (11/28/13): TG QUINTIN=2.5 ng/ml, Ab=15.0 U/ml (06/12/14): TG QUINTIN=2.8 ng/ml, Ab=14.0 U/ml (12/11/14): TG QUINTIN=2.6 ng/ml, Ab=14.4 U/ml (06/21/15): TG QUINTIN=2.50 ng/ml, Ab=19.0 U/ml (12/27/15): TG QUINTIN=2.50 ng/ml, Ab=24.0 U/ml (12/27/16): TG QUINTIN=2.60 ng/ml, Ab=19.0 U/ml (06/27/17): TG QUINTIN=2.70 ng/ml, Ab=19 U/ml Component Thyroglobulin TG Antibody Screen Ref Rng 1.6 - 59.9 ng/mL <14.4 IU/mL 01/01/2018 QUINTIN at [facility] <0.2 (L) 86.0 (H) 06/06/18 2.20 20.0 12/17/18 <0.2 77.1 01/30/19 2.00 21.0 07/03/2019 2.80 21.0 01/06/2020 2.70 28.0 01/06/2020 2.50 30.0 01/25/2021 2.20 23.0 08/12/2021 2.80 28.0 01/31/2022 Flor Assay 2.20 25.0 08/18/2022 <0.5 13.8 02/26/2023 <0.5 14.5 Vitamin D Component Vitamin D 25 Hydroxy Latest Ref Rng 31.0 - 80.0 ng/mL 04/29/2013 48.5 11/28/2013 38.5 06/12/2014 33.4 12/11/2014 33.6 06/21/2015 37.2 Ultrasound (06/24/10): no suspicious adenopathy along great vessels or in lateral neck on either side. No masses in thyroid bed. (08/14/11): suspicious nodule right neck at level of bifurcation, is 1.0 x 0.8 x 0.7cm, nonvascular, needs FNA (08/30/12): no suspicious adenopathy along great vessels or in lateral neck on either side. No masses in thyroid bed. (06/23/13): no suspicious adenopathy along great vessels or in lateral neck on either side. No masses in thyroid bed. (07/26/15): no suspicious adenopathy along great vessels or in lateral neck on either side. No masses in thyroid bed. (07/31/16): no suspicious adenopathy along great vessels or in lateral neck on either side. No masses in thyroid bed. (08/01/17): no suspicious adenopathy along great vessels or in lateral neck on either side. No masses in thyroid bed. (07/24/18): no suspicious adenopathy along great vessels or in lateral neck on either side. No masses in thyroid bed. (08/08/19): no suspicious adenopathy along great vessels or in lateral neck on either side. No masses in thyroid bed. (08/25/20): no suspicious adenopathy along great vessels or in lateral neck on either side. No masses in thyroid bed. (09/16/21): no suspicious adenopathy along great vessels or in lateral neck on either side. No masses in thyroid bed. (09/15/22): no suspicious adenopathy along great vessels or in lateral neck on either side. No masses in thyroid bed. ROS PHYSICAL EXAM PAST MEDICAL HISTORY PAST MEDICAL HISTORY Diagnosis Date Diabetes (HCC) BENEDICT (obstructive sleep apnea) 05/03/2011 Postsurgical hypothyroidism Thyroid cancer (HCC) PAST SURGICAL HISTORY PAST SURGICAL HISTORY Procedure Laterality Date OTHER 2011 Neck dissection THYROIDECTOMY TOTAL/COMPLETE 2009 FAMILY HISTORY No family history on file. SOCIAL HISTORY Social History Tobacco Use Smoking status: Former Packs/day: 0.50 Years: 8.00 Additional pack years: 0.00 Total pack years: 4.00 Types: Cigarettes Quit date: 12/26/1979 Years since quittin.2 Smokeless tobacco: Never Substance Use Topics Alcohol use: No Drug use: No MEDICATIONS Prior to Admission Medications: Current Outpatient Prescriptions on File Prior to Visit: levothyroxine (SYNTHROID) 150 mcg tablet Take 1 tablet by mouth once daily. glyBURIDE-metFORmin (GLUCOVANCE) 5-500 mg per tablet Take 2 tablets by mouth twice daily with meals. aspirin, enteric coated (ECOTRIN LOW STRENGTH) 81 mg EC tablet Take 1 tablet by mouth once daily. pravastatin (PRAVACHOL) 80 mg ORAL tablet Take 1 tablet by mouth once daily. zolpidem (AMBIEN) 10 mg ORAL Tab Take 1 tablet by mouth at bedtime as needed. for insomnia. COMPOUNDED PRESCRIPTION CPAP setting at 5 cm H2O with heated humidification mask (per patient preference) and lifetime supplies DX BENEDICT 327.23 Ferrous Sulfate (IRON) 325 mg (65 mg iron) ORAL tablet Take 1 tablet by mouth twice daily. lisinopril 10 mg ORAL tablet Take one(1) tablet daily. valsartan (DIOVAN) 160 mg ORAL tablet Take one(1) tablet daily. sitagliptin (JANUVIA) 100 mg ORAL tablet Take one(1) tablet daily. No current facility-administered medications on file prior to visit. ALLERGIES ALLERGIES Allergen Reactions Environmental [Othe* Other: See Comments Contact with cold air or cold objects causes a rash. Medical Decision Making: Medical Decision Making Level: 1 - N/A documented in this encounter [facility] 01-08-2023 Miscellaneous Notes Formattin g of this note might be different from the original. Chart notes/demographics faxed to [facility]. Kamini Kwok RN Medical service company Needs rx for dexcom g7 reciever They have rx for sensor already Chart note demopraphics [phone] documented in this encounter [facility] 12-14-2022 Note HNO ID: [id number] Author: Liliana Jama MD Service: ? Author Type: Physician Type: Progress Notes Filed: 12/14/2022 12:50 PM Note Text: Virtual Visit utilizing both audio and video components FaceTime I have communicated my name and active licensure. The patient's identity and physical location were verified at the time of this visit. Either the patient or their legal appliance service representative has been informed of the risks and benefits of -- and alternatives to -- treatment through a remote evaluation and consents to proceed with the evaluation remotely. Patient location: at home, [facility] Assessment / Plan Problem: 1) Diabetes type 2. HbA1c continues to be reasonable, will keep her on current Rx. 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 Sugars actually pretty good for how much stress she is under. 2) Thyroid CA, TG by QUINTIN has been stable, but this last time was checked using new assay at [facility], which shows that TG was undetectable. I will discuss this with colleagues to see if we should continue using the QUINTIN for TG measurement (sendout to [facility]) 3) s/p COVID vaccination x 5 (Pfizer), including bivalent 04/12/22. COVID April 2020. Treatment / Plan: 1) contiue on your current diabetes medications, and on your current levothyroxine dose of 125 mcg daily 2) [place] as planned Liliana Jama MD hone = [facility] [phone] Data Review: Component Hemoglobin A1C (POCT) Latest Ref Rng AND Units 4.2 - 5.6 % 04/18/2018 8.7 (A) 07/24/2018 7.0 (A) 10/25/2018 6.5 (A) 01/28/2019 7.0 (A) 05/08/19 7.1 08/08/19 7.4 01/01/2020 7.0 05/12/2020 6.5 08/25/20 7.2 01/25/21 6.9 05/16/2021 6.5 09/16/21 6.3 12/28/21 6.4 05/30/2022 6.5 09/15/2022 6.8 12/13/2022 7.2 Component Albumin/Creat Ratio Latest Ref Rng AND Units 0 - 30 mg/g 05/14/2018 <8 08/08/19 <10 Component Latest Ref Rng AND Units 07/03/2019 08/25/2020 09/16/2021 Protein, Total 6.3 - 8.0 g/dL 7.4 7.6 7.4 Albumin 3.9 - 4.9 g/dL 4.3 4.2 4.1 Calcium 8.5 - 10.2 mg/dL 9.6 9.9 9.6 Bilirubin, Total 0.2 - 1.3 mg/dL 0.2 0.2 0.3 Alkaline Phosphatase 34 - 123 U/L 83 71 59 AST 13 - 35 U/L 10 (L) 11 (L) 10 (L) Glucose 74 - 99 mg/dL 227 (H) 146 (H) 60 (L) BUN 7 - 21 mg/dL 25 (H) 24 (H) 31 (H) Creatinine 0.58 - 0.96 mg/dL 1.11 (H) 1.05 (H) 1.14 (H) Sodium 136 - 144 mmol/L 142 144 141 Potassium 3.7 - 5.1 mmol/L 4.4 4.8 3.8 Chloride 97 - 105 mmol/L 101 105 103 CO2 22 - 30 mmol/L 26 27 25 Anion Gap 9 - 18 mmol/L 15 12 13 ALT 7 - 38 U/L 12 13 10 eGFR- >59 59 >60 57 (L) eGFR-All Other Races >59 . 49 52 (L) 47 (L) Component Latest Ref Rng AND Units 05/14/2018 07/03/2019 Cholesterol, Total <200 mg/dL 119 121 Triglyceride <150 mg/dL 185 (H) 233 (H) HDL Cholesterol >39 mg/dL 31 (L) 31 (L) LDL Cholesterol <100 mg/dL 51 43 Non HDL Cholesterol <130 mg/dL 88 90 History Problem name: diabetes Quality: type 2, Severity: sugars in Duration: dx 1999 Context: 1) eye exam, told no DM changes, around 04/2021 2) no hx DE, stroke, no known renal disease, 3) no resting acral dysesthesias. Nonsmoker 4) severe BENEDICT, uses CPAP every day, says it helps 5) thyroid CA, history shown below, taking 125 mcg daily 6) hx COVID dx [place] 04/29/20 Modifying factors: 1) Basaglar 24 units at lunch, meal Humalog=01-30-11, metformin ER 850mg 3x/d, Farxiga 10mg in AM 2) pravastatin 80mg at bed, 3) losartan 100mg/d 4) levothyroxine 125mcg daily Associated symptoms: says feels good. in hospital for a week in September 2022, CHF, prostate CA mets to spine found during that visit Lots of stress, sugars higher. s/p COVID vaccine x 5 Thyroid CA History Surgery (05/17/10): total thyroidectomy, Dr. Julio Cesar Moore (02/08/12): right modified radical neck dissection to remove lymph nodes, Dr. Jef Hardy Pathology (05/17/10): papillary thyroid CA, follicular variant, multifocal bilateral, 1.5cm on right, 0.3 and 0.4cvm on left, capsular invasion present, but no invasion outside the thyroid capsule. T1b, N0, MX (11/24/11): right neck node FNA, positive for malignant cells: metastatic papillary thyroid CA (02/08/12): right mod rad neck dissection: metastatic papillary thyroid CA, 4 of 14 nodes positive, no extranodal extension identified, largest involved node 1.2cm diameter Scan (09/23/10): post-therapy 131-Iodine scan, focal uptake in lower neck, no evidence of metastasis, Thyrogen stim (10/16/12): Thyrogen stimulated 123-Iodine body scan, no evidence of local or distant metastasis GARDINER (09/15/10): treatment 101.0 mCi 131-Iodine, Thyrogen stim Thyroglobulin (06/02/10): TG <0.5 ng/ml, Wm=574 IU/ml (09/15/10): TG QUINTIN=6.0 ng/ml, Ab=20 U/ml, Thyrogen stim (01/03/11): TG QUINTIN=3.3 ng/ml, Ab=26 U/ml (08/01/11): TG QUINTIN=3.0 ng/ml, Ab=17 U/ml (7 (more content not included)... [facility] 09-15-2022 Instructions Liliana Jama MD - 09/15/2022 10:35 AM EST Assessment / Plan Problem: 1) Diabetes type 2. HbA1c continues to be reasonable, will keep her on current Rx. 2) Thyroid CA, TG by QUINTIN has been stable, but this last time was checked using new assay at [facility], which shows that TG was undetectable. I will discuss this with colleagues to see if we should continue using the QUINTIN for TG measurement (sendout to [facility]) 3) s/p COVID vaccination x 5 ([employer]), including bivalent 04/12/22. COVID April 2020. Treatment / Plan: 1) contiue on your current diabetes medications, and on your current levothyroxine dose of 125 mcg daily 2) return to me in 3 months virtual, Liliana Jama MD [facility] = [facility] [phone] Data Review: Component Latest Ref Rng & Units 08/18/2022 09/15/2022 TG Antibody Screen <14.4 IU/mL 99.7 (H) Thyroglobulin Ab, Serum <4.0 IU/mL 13.8 (H) Free T4 0.9 - 1.7 ng/dL 1.5 TSH 0.270 - 4.200 mIU/L 1.610 Thyroglobulin, LC-MS/MS 1.3 - 31.8 ng/mL <0.5 (L) Hemoglobin A1C (POCT) 4.2 - 5.6 % 6.8 (A) documented in this encounter [facility] 09-15-2022 Procedure note Thyroid / Neck Ultrasound Findings: no suspicious adenopathy along great vessels or in lateral neck on either side. No masses in thyroid bed. Impression benign study Recommendation: followup ultrasound in 1 year Liliana Jama MD Clinical Issues Reason for the study: followup of thyroid CA Comparison: none Technical Issues Equipment: [employer] Prosound Alpha 6 Transducer: Linear/Trapezoidal multifrequency Regions examined: Neck, Sagittal and transverse views were obtained. Color power Doppler were applied when indicated. documented in this encounter [facility] 09-15-2022 History of Presen t illness Narrative Assessment / Plan Problem: 1) Diabetes type 2. HbA1c continues to be reasonable, will keep her on current Rx. 2) Thyroid CA, TG by QUINTIN has been stable, but this last time was checked using new assay at [facility], which shows that TG was undetectable. I will discuss this with colleagues to see if we should continue using the QUINTIN for TG measurement (sendout to [facility]) 3) s/p COVID vaccination x 5 ([employer]), including bivalent 04/12/22. COVID April 2020. Treatment / Plan: 1) contiue on your current diabetes medications, and on your current levothyroxine dose of 125 mcg daily 2) return to me in 3 months padilla, Liliana Jama MD iPhone = [facility] [phone] Data Review: Component Latest Ref Rng & Units 08/18/2022 09/15/2022 TG Antibody Screen <14.4 IU/mL 99.7 (H) Thyroglobulin Ab, Serum <4.0 IU/mL 13.8 (H) Free T4 0.9 - 1.7 ng/dL 1.5 TSH 0.270 - 4.200 mIU/L 1.610 Thyroglobulin, LC-MS/MS 1.3 - 31.8 ng/mL <0.5 (L) Hemoglobin A1C (POCT) 4.2 - 5.6 % 6.8 (A) .............................. .............................. ............... Component Hemoglobin A1C (POCT) Latest Ref Rng & Units 4.2 - 5.6 % 04/18/2018 8.7 (A) 07/24/2018 7.0 (A) 10/25/2018 6.5 (A) 01/28/2019 7.0 (A) 05/08/19 7.1 08/08/19 7.4 01/01/2020 7.0 05/12/2020 6.5 08/25/20 7.2 01/25/21 6.9 05/16/2021 6.5 09/16/21 6.3 12/28/21 6.4 05/30/2022 6.5 09/15/2022 6.8 Component Albumin/Creat Ratio Latest Ref Rng & Units 0 - 30 mg/g 05/14/2018 <8 08/08/19 <10 Component Latest Ref Rng & Units 07/03/2019 08/25/2020 09/16/2021 Protein, Total 6.3 - 8.0 g/dL 7.4 7.6 7.4 Albumin 3.9 - 4.9 g/dL 4.3 4.2 4.1 Calcium 8.5 - 10.2 mg/dL 9.6 9.9 9.6 Bilirubin, Total 0.2 - 1.3 mg/dL 0.2 0.2 0.3 Alkaline Phosphatase 34 - 123 U/L 83 71 59 AST 13 - 35 U/L 10 (L) 11 (L) 10 (L) Glucose 74 - 99 mg/dL 227 (H) 146 (H) 60 (L) BUN 7 - 21 mg/dL 25 (H) 24 (H) 31 (H) Creatinine 0.58 - 0.96 mg/dL 1.11 (H) 1.05 (H) 1.14 (H) Sodium 136 - 144 mmol/L 142 144 141 Potassium 3.7 - 5.1 mmol/L 4.4 4.8 3.8 Chloride 97 - 105 mmol/L 101 105 103 CO2 22 - 30 mmol/L 26 27 25 Anion Gap 9 - 18 mmol/L 15 12 13 ALT 7 - 38 U/L 12 13 10 eGFR- >59 59 >60 57 (L) eGFR-All Other Races >59 . 49 52 (L) 47 (L) Component Latest Ref Rng & Units 05/14/2018 07/03/2019 Cholesterol, Total <200 mg/dL 119 121 Triglyceride <150 mg/dL 185 (H) 233 (H) HDL Cholesterol >39 mg/dL 31 (L) 31 (L) LDL Cholesterol <100 mg/dL 51 43 Non HDL Cholesterol <130 mg/dL 88 90 History Problem name: diabetes Quality: type 2, Severity: sugars in Duration: dx 1999 Context: 1) eye exam, told no DM changes, around 04/2021 2) no hx [place], stroke, no known renal disease, 3) no resting acral dysesthesias. Nonsmoker 4) severe BENEDICT, uses CPAP every day, says it helps 5) thyroid CA, history shown below, taking 125 mcg daily 6) hx COVID dx [place] Bean 04/29/20 Modifying factors: 1) Basaglar 24 units at lunch, meal Humalog=01-30-11, metformin ER 850mg 3x/d, Farxiga 10mg in AM 2) pravastatin 80mg at bed, 3) losartan 100mg/d 4) levothyroxine 125mcg daily Associated symptoms: says feels good. s/p COVID vaccine x 5 Thyroid CA History Surgery (05/17/10): total thyroidectomy, Dr. Julio Cesar Moore (02/08/12): right modified radical neck dissection to remove lymph nodes, Dr. Jef Hardy Pathology (05/17/10): papillary thyroid CA, follicular variant, multifocal bilateral, 1.5cm on right, 0.3 and 0.4cvm on left, capsular invasion present, but no invasion outside the thyroid capsule. T1b, N0, MX (11/24/11): right neck node FNA, positive for malignant cells: metastatic papillary thyroid CA (02/08/12): right mod rad neck dissection: metastatic papillary thyroid CA, 4 of 14 nodes positive, no extranodal extension identified, largest involved node 1.2cm diameter Scan (09/23/10): post-therapy 131-Iodine scan, focal uptake in lower neck, no evidence of metastasis, Thyrogen stim (10/16/12): Thyrogen stimulated 123-Iodine body scan, no evidence of local or distant metastasis [facility] (09/15/10): treatment 101.0 mCi 131-Iodine, Thyrogen stim Thyroglobulin (06/02/10): TG <0.5 ng/ml, Oi=006 IU/ml (09/15/10): TG QUINTIN=6.0 ng/ml, Ab=20 U/ml, Thyrogen stim (01/03/11): TG QUINTIN=3.3 ng/ml, Ab=26 U/ml (08/01/11): TG QUINTIN=3.0 ng/ml, Ab=17 U/ml (02/01/12): TG QUINTIN=2.6 ng/ml, Ab=19 U/ml (06/11/12): TG QUINTIN=12.0 ng/ml, Up=228 IU/ml done at [facility] (doubt these results) (10/18/12): TG QUINTIN=3.0 ng/ml, Ab=10.3 U/ml, Thyrogen stim (11/04/12): TG QUINTIN=2.9 ng/ml, Ab=13.2 U/ml (04/29/13): TG QUINTIN=2.5 ng/ml, Ab=10.0 U/ml (11/28/13): TG QUINTIN=2.5 ng/ml, Ab=15.0 U/ml (06/12/14): TG QUINTIN=2.8 ng/ml, Ab=14.0 U/ml (12/11/14): TG QUINTIN=2.6 ng/ml, Ab=14.4 U/ml (06/21/15): TG QUINTIN=2.50 ng/ml, Ab=19.0 U/ml (12/27/15): TG QUINTIN=2.50 ng/ml, Ab=24.0 U/ml (12/27/16): TG QUINTIN=2.60 ng/ml, Ab=19.0 U/ml (06/27/17): TG QUINTIN=2.70 ng/ml, Ab=19 U/ml Component Thyroglobulin TG Antibody Screen Latest Ref Rng & Units 1.6 - 59.9 ng/mL <14.4 IU/mL 01/01/2018 <0.2 (L) 86.0 (H) 06/06/18 QUINTIN at [facility] 2.20 20.0 12/17/18 <0.2 77.1 01/30/19 QUINTIN at [facility] 2.00 21.0 07/03/2019 QUINTIN at [facility] 2.80 21.0 01/06/2020 QUINTIN at [facility] 2.70 28.0 01/06/2020 QUINTIN at [facility] 2.50 30.0 01/25/2021 QUINTIN at [facility] 2.20 23.0 08/12/2021 QUINTIN at [facility] 2.80 28.0 01/31/2022 QUINTIN at [facility] 2.20 25.0 Vitamin D Component Vitamin D 25 Hydroxy Latest Ref Rng 31.0 - 80.0 ng/mL 04/29/2013 48.5 11/28/2013 38.5 06/12/2014 33.4 12/11/2014 33.6 06/21/2015 37.2 Ultrasound (06/24/10): no suspicious adenopathy along great vessels or in lateral neck on either side. No masses in thyroid bed. (08/14/11): suspicious nodule right neck at level of bifurcation, is 1.0 x 0.8 x 0.7cm, nonvascular, needs FNA (08/30/12): no suspicious adenopathy along great vessels or in lateral neck on either side. No masses in thyroid bed. (06/23/13): no suspicious adenopathy along great vessels or in lateral neck on either side. No masses in thyroid bed. (07/26/15): no suspicious adenopathy along great vessels or in lateral neck on either side. No masses in thyroid bed. (07/31/16): no suspicious adenopathy along great vessels or in lateral neck on either side. No masses in thyroid bed. (08/01/17): no suspicious adenopathy along great vessels or in lateral neck on either side. No masses in thyroid bed. (07/24/18): no suspicious adenopathy along great vessels or in lateral neck on either side. No masses in thyroid bed. (08/08/19): no suspicious adenopathy along great vessels or in lateral neck on either side. No masses in thyroid bed. (08/25/20): no suspicious adenopathy along great vessels or in lateral neck on either side. No masses in thyroid bed. (09/16/21): no suspicious adenopathy along great vessels or in lateral neck on either side. No masses in thyroid bed. (09/15/22): no suspicious adenopathy along great vessels or in lateral neck on either side. No masses in thyroid bed. ROS PHYSICAL EXAM PAST MEDICAL HISTORY PAST MEDICAL HISTORY Diagnosis Date Diabetes (HCC) BENEDICT (obstructive sleep apnea) 05/03/2011 Postsurgical hypothyroidism Thyroid cancer (HCC) PAST SURGICAL HISTORY PAST SURGICAL HISTORY Procedure Laterality Date OTHER 2011 Neck dissection THYROIDECTOMY TOTAL/COMPLETE 2009 FAMILY HISTORY No family history on file. SOCIAL HISTORY Social History Tobacco Use Smoking status: Former Packs/day: 0.50 Years: 8.00 Pack years: 4.00 Types: Cigarettes Quit date: 12/26/1979 Years since quittin.7 Smokeless tobacco: Never Substance Use Topics Alcohol use: No Drug use: No MEDICATIONS Prior to Admission Medications: Current Outpatient Prescriptions on File Prior to Visit: levothyroxine (SYNTHROID) 150 mcg tablet Take 1 tablet by mouth once daily. glyBURIDE-metFORmin (GLUCOVANCE) 5-500 mg per tablet Take 2 tablets by mouth twice daily with meals. aspirin, enteric coated (ECOTRIN LOW STRENGTH) 81 mg EC tablet Take 1 tablet by mouth once daily. pravastatin (PRAVACHOL) 80 mg ORAL tablet Take 1 tablet by mouth once daily. zolpidem (AMBIEN) 10 mg ORAL Tab Take 1 tablet by mouth at bedtime as needed. for insomnia. COMPOUNDED PRESCRIPTION CPAP setting at 5 cm H2O with heated humidification mask (per patient preference) and lifetime supplies DX BENEDICT 327.23 Ferrous Sulfate (IRON) 325 mg (65 mg iron) ORAL tablet Take 1 tablet by mouth twice daily. lisinopril 10 mg ORAL tablet Take one(1) tablet daily. valsartan (DIOVAN) 160 mg ORAL tablet Take one(1) tablet daily. sitagliptin (JANUVIA) 100 mg ORAL tablet Take one(1) tablet daily. No current facility-administered medications on file prior to visit. ALLERGIES ALLERGIES Allergen Reactions Environmental [Othe* Other: See Comments Contact with cold air or cold objects causes a rash. Medical Decision Making: Medical Decision Making Level: 1 - N/A documented in this encounter [facility] 06-26-2022 Instructions Liliana Jama MD - 06/26/2022 4:51 PM EST Assessment / Plan Problem: 1) Diabetes type 2. HbA1c reflects the good control suggested by fingerstick sugars, will have her just continue on present Rx. 2) Thyroid CA, TG by QUINTIN stable, Ab stable. Next ultrasound Aug 2022, will need to be in person visit. Will order the new TG with reflex LC/MS to see how this does as a local substitute for the QUINTIN. 3) s/p COVID vaccination x 5 ([employer]), including bivalent 04/12/22. COVID April 2020. Treatment / Plan: 1) contiue on your current diabetes medications, and on your current levothyroxine dose of 125 mcg daily 2) return to me in September with labs before the visit. Liliana Jama MD documented in this encounter [facility] 06-26-2022 History of Presen t illness Narrative Virtual Visit utilizing both audio and video components MyChart-Zoom Assessment / Plan Problem: 1) Diabetes type 2. HbA1c reflects the good control suggested by fingerstick sugars, will have her just continue on present Rx. 2) Thyroid CA, TG by QUINTIN stable, Ab stable. Next ultrasound Aug 2022, will need to be in person visit. Will order the new TG with reflex LC/MS to see how this does as a local substitute for the QUINTIN. 3) s/p COVID vaccination x 5 ([employer]), including bivalent 04/12/22. COVID April 2020. Treatment / Plan: 1) contiue on your current diabetes medications, and on your current levothyroxine dose of 125 mcg daily 2) return to me in September with labs before the visit. Liliana Jama MD Data Review: Component Latest Ref Rng & Units 01/31/2022 Free T4 0.9 - 1.7 ng/dL 1.6 TSH 0.270 - 4.200 mIU/L 0.563 .............................. .............................. ............... Component Hemoglobin A1C (POCT) Latest Ref Rng & Units 4.2 - 5.6 % 04/18/2018 8.7 (A) 07/24/2018 7.0 (A) 10/25/2018 6.5 (A) 01/28/2019 7.0 (A) 05/08/19 7.1 08/08/19 7.4 01/01/2020 7.0 05/12/2020 6.5 08/25/20 7.2 01/25/21 6.9 05/16/2021 6.5 09/16/21 6.3 12/28/21 6.4 05/30/2022 6.5 Component Albumin/Creat Ratio Latest Ref Rng & Units 0 - 30 mg/g 05/14/2018 <8 08/08/19 <10 Component Latest Ref Rng & Units 07/03/2019 08/25/2020 09/16/2021 Protein, Total 6.3 - 8.0 g/dL 7.4 7.6 7.4 Albumin 3.9 - 4.9 g/dL 4.3 4.2 4.1 Calcium 8.5 - 10.2 mg/dL 9.6 9.9 9.6 Bilirubin, Total 0.2 - 1.3 mg/dL 0.2 0.2 0.3 Alkaline Phosphatase 34 - 123 U/L 83 71 59 AST 13 - 35 U/L 10 (L) 11 (L) 10 (L) Glucose 74 - 99 mg/dL 227 (H) 146 (H) 60 (L) BUN 7 - 21 mg/dL 25 (H) 24 (H) 31 (H) Creatinine 0.58 - 0.96 mg/dL 1.11 (H) 1.05 (H) 1.14 (H) Sodium 136 - 144 mmol/L 142 144 141 Potassium 3.7 - 5.1 mmol/L 4.4 4.8 3.8 Chloride 97 - 105 mmol/L 101 105 103 CO2 22 - 30 mmol/L 26 27 25 Anion Gap 9 - 18 mmol/L 15 12 13 ALT 7 - 38 U/L 12 13 10 eGFR- >59 59 >60 57 (L) eGFR-All Other Races >59 . 49 52 (L) 47 (L) Component Latest Ref Rng & Units 05/14/2018 07/03/2019 Cholesterol, Total <200 mg/dL 119 121 Triglyceride <150 mg/dL 185 (H) 233 (H) HDL Cholesterol >39 mg/dL 31 (L) 31 (L) LDL Cholesterol <100 mg/dL 51 43 Non HDL Cholesterol <130 mg/dL 88 90 History Problem name: diabetes Quality: type 2, Severity: sugars in Duration: dx 1999 Context: 1) eye exam, told no DM changes, around 04/2021 2) no hx [place], stroke, no known renal disease, 3) no resting acral dysesthesias. Nonsmoker 4) severe BENEDICT, uses CPAP every day, says it helps 5) thyroid CA, history shown below, taking 125 mcg daily 6) hx COVID dx [facility] 04/29/20 Modifying factors: 1) Basaglar 24 units at lunch, meal Humalog=01-30-11, metformin ER 850mg 3x/d, Farxiga 10mg in AM 2) pravastatin 80mg at bed, 3) losartan 100mg/d 4) levothyroxine 125mcg daily Associated symptoms: says feels good. s/p COVID vaccine x 5 Thyroid CA History Surgery (05/17/10): total thyroidectomy, Dr. Julio Cesar Moore (02/08/12): right modified radical neck dissection to remove lymph nodes, Dr. Jef Hardy Pathology (05/17/10): papillary thyroid CA, follicular variant, multifocal bilateral, 1.5cm on right, 0.3 and 0.4cvm on left, capsular invasion present, but no invasion outside the thyroid capsule. T1b, N0, MX (11/24/11): right neck node FNA, positive for malignant cells: metastatic papillary thyroid CA (02/08/12): right mod rad neck dissection: metastatic papillary thyroid CA, 4 of 14 nodes positive, no extranodal extension identified, largest involved node 1.2cm diameter Scan (09/23/10): post-therapy 131-Iodine scan, focal uptake in lower neck, no evidence of metastasis, Thyrogen stim (10/16/12): Thyrogen stimulated 123-Iodine body scan, no evidence of local or distant metastasis [facility] (09/15/10): treatment 101.0 mCi 131-Iodine, Thyrogen stim Thyroglobulin (06/02/10): TG <0.5 ng/ml, Qz=693 IU/ml (09/15/10): TG QUINTIN=6.0 ng/ml, Ab=20 U/ml, Thyrogen stim (01/03/11): TG QUINTIN=3.3 ng/ml, Ab=26 U/ml (08/01/11): TG QUINTIN=3.0 ng/ml, Ab=17 U/ml (02/01/12): TG QUINTIN=2.6 ng/ml, Ab=19 U/ml (06/11/12): TG QUINTIN=12.0 ng/ml, Pi=210 IU/ml done at [facility] (doubt these results) (10/18/12): TG QUINITN=3.0 ng/ml, Ab=10.3 U/ml, Thyrogen stim (11/04/12): TG QUINTIN=2.9 ng/ml, Ab=13.2 U/ml (04/29/13): TG QUINTIN=2.5 ng/ml, Ab=10.0 U/ml (11/28/13): TG QUINTIN=2.5 ng/ml, Ab=15.0 U/ml (06/12/14): TG QUINTIN=2.8 ng/ml, Ab=14.0 U/ml (12/11/14): TG QUINTIN=2.6 ng/ml, Ab=14.4 U/ml (06/21/15): TG QUINTIN=2.50 ng/ml, Ab=19.0 U/ml (12/27/15): TG QUINTIN=2.50 ng/ml, Ab=24.0 U/ml (12/27/16): TG QUINTIN=2.60 ng/ml, Ab=19.0 U/ml (06/27/17): TG QUINTIN=2.70 ng/ml, Ab=19 U/ml Component Thyroglobulin TG Antibody Screen Latest Ref Rng & Units 1.6 - 59.9 ng/mL <14.4 IU/mL 01/01/2018 <0.2 (L) 86.0 (H) 06/06/18 QUINTIN at [facility] 2.20 20.0 12/17/18 <0.2 77.1 01/30/19 QUINTIN at [facility] 2.00 21.0 07/03/2019 QUINTIN at [facility] 2.80 21.0 01/06/2020 QUINTIN at [facility] 2.70 28.0 01/06/2020 QUINTIN at [facility] 2.50 30.0 01/25/2021 QUINTIN at [facility] 2.20 23.0 08/12/2021 QUINTIN at [facility] 2.80 28.0 01/31/2022 QUINTIN at [facility] 2.20 25.0 Vitamin D Component Vitamin D 25 Hydroxy Latest Ref Rng 31.0 - 80.0 ng/mL 04/29/2013 48.5 11/28/2013 38.5 06/12/2014 33.4 12/11/2014 33.6 06/21/2015 37.2 Ultrasound (06/24/10): no suspicious adenopathy along great vessels or in lateral neck on either side. No masses in thyroid bed. (08/14/11): suspicious nodule right neck at level of bifurcation, is 1.0 x 0.8 x 0.7cm, nonvascular, needs FNA (08/30/12): no suspicious adenopathy along great vessels or in lateral neck on either side. No masses in thyroid bed. (06/23/13): no suspicious adenopathy along great vessels or in lateral neck on either side. No masses in thyroid bed. (07/26/15): no suspicious adenopathy along great vessels or in lateral neck on either side. No masses in thyroid bed. (07/31/16): no suspicious adenopathy along great vessels or in lateral neck on either side. No masses in thyroid bed. (08/01/17): no suspicious adenopathy along great vessels or in lateral neck on either side. No masses in thyroid bed. (07/24/18): no suspicious adenopathy along great vessels or in lateral neck on either side. No masses in thyroid bed. (08/08/19): no suspicious adenopathy along great vessels or in lateral neck on either side. No masses in thyroid bed. (08/25/20): no suspicious adenopathy along great vessels or in lateral neck on either side. No masses in thyroid bed. (09/16/21): no suspicious adenopathy along great vessels or in lateral neck on either side. No masses in thyroid bed. ROS PHYSICAL EXAM PAST MEDICAL HISTORY PAST MEDICAL HISTORY Diagnosis Date Diabetes (HCC) BENEDICT (obstructive sleep apnea) 05/03/2011 Postsurgical hypothyroidism Thyroid cancer (HCC) PAST SURGICAL HISTORY PAST SURGICAL HISTORY Procedure Laterality Date OTHER 2011 Neck dissection THYROIDECTOMY TOTAL/COMPLETE 2009 FAMILY HISTORY No family history on file. SOCIAL HISTORY Social History Tobacco Use Smoking status: Former Packs/day: 0.50 Years: 8.00 Pack years: 4.00 Types: Cigarettes Quit date: 12/26/1979 Years since quittin.5 Smokeless tobacco: Never Substance Use Topics Alcohol use: No Drug use: No MEDICATIONS Prior to Admission Medications: Current Outpatient Prescriptions on File Prior to Visit: levothyroxine (SYNTHROID) 150 mcg tablet Take 1 tablet by mouth once daily. glyBURIDE-metFORmin (GLUCOVANCE) 5-500 mg per tablet Take 2 tablets by mouth twice daily with meals. aspirin, enteric coated (ECOTRIN LOW STRENGTH) 81 mg EC tablet Take 1 tablet by mouth once daily. pravastatin (PRAVACHOL) 80 mg ORAL tablet Take 1 tablet by mouth once daily. zolpidem (AMBIEN) 10 mg ORAL Tab Take 1 tablet by mouth at bedtime as needed. for insomnia. COMPOUNDED PRESCRIPTION CPAP setting at 5 cm H2O with heated humidification mask (per patient preference) and lifetime supplies DX BENEDICT 327.23 Ferrous Sulfate (IRON) 325 mg (65 mg iron) ORAL tablet Take 1 tablet by mouth twice daily. lisinopril 10 mg ORAL tablet Take one(1) tablet daily. valsartan (DIOVAN) 160 mg ORAL tablet Take one(1) tablet daily. sitagliptin (JANUVIA) 100 mg ORAL tablet Take one(1) tablet daily. No current facility-administered medications on file prior to visit. ALLERGIES ALLERGIES Allergen Reactions Environmental [Othe* Other: See Comments Contact with cold air or cold objects causes a rash. Medical Decision Making: Problems: Moderate: 2+ stable chronic illnesses Data: Unique test result(s) reviewed: 1 Unique test(s) ordered: 3+ Risk: Moderate: Drug management Medical Decision Making Level: 4 - Moderate documented in this encounter [facility] 03-17-2022 History of Presen t illness Narrative Assessment / Plan Problem: 1) Diabetes type 2. Sugars continue to be OK on average, though she is often forgetting insulin prior to meals. 2) Thyroid CA, TG by QUINTIN stable, Ab stable. Next ultrasound Aug 2022, will need to be in person visit. 3) s/p COVID vaccination x 4 ([employer]). COVID April 2020. Discussed getting updated booster when it comes out Mar 2022. Discussed Paxlovid & molnupiravir Treatment / Plan: 1) contiue on your current diabetes medications, and on your current levothyroxine dose of 125 mcg daily 2) return to me in 3 months virtual and in person in 6 months, with blood test before your visit. Liliana Jama MD Data Review: Component Latest Ref Rng & Units 01/31/2022 Free T4 0.9 - 1.7 ng/dL 1.6 TSH 0.270 - 4.200 mIU/L 0.563 .............................. .............................. ............... Component Hemoglobin A1C (POCT) Latest Ref Rng & Units 4.2 - 5.6 % 04/18/2018 8.7 (A) 07/24/2018 7.0 (A) 10/25/2018 6.5 (A) 01/28/2019 7.0 (A) 05/08/19 7.1 08/08/19 7.4 01/01/2020 7.0 05/12/2020 6.5 08/25/20 7.2 01/25/21 6.9 05/16/2021 6.5 09/16/21 6.3 12/28/21 6.4 Component Albumin/Creat Ratio Latest Ref Rng & Units 0 - 30 mg/g 05/14/2018 <8 08/08/19 <10 Component Latest Ref Rng & Units 07/03/2019 08/25/2020 09/16/2021 Protein, Total 6.3 - 8.0 g/dL 7.4 7.6 7.4 Albumin 3.9 - 4.9 g/dL 4.3 4.2 4.1 Calcium 8.5 - 10.2 mg/dL 9.6 9.9 9.6 Bilirubin, Total 0.2 - 1.3 mg/dL 0.2 0.2 0.3 Alkaline Phosphatase 34 - 123 U/L 83 71 59 AST 13 - 35 U/L 10 (L) 11 (L) 10 (L) Glucose 74 - 99 mg/dL 227 (H) 146 (H) 60 (L) BUN 7 - 21 mg/dL 25 (H) 24 (H) 31 (H) Creatinine 0.58 - 0.96 mg/dL 1.11 (H) 1.05 (H) 1.14 (H) Sodium 136 - 144 mmol/L 142 144 141 Potassium 3.7 - 5.1 mmol/L 4.4 4.8 3.8 Chloride 97 - 105 mmol/L 101 105 103 CO2 22 - 30 mmol/L 26 27 25 Anion Gap 9 - 18 mmol/L 15 12 13 ALT 7 - 38 U/L 12 13 10 eGFR- >59 59 >60 57 (L) eGFR-All Other Races >59 . 49 52 (L) 47 (L) Component Latest Ref Rng & Units 05/14/2018 07/03/2019 Cholesterol, Total <200 mg/dL 119 121 Triglyceride <150 mg/dL 185 (H) 233 (H) HDL Cholesterol >39 mg/dL 31 (L) 31 (L) LDL Cholesterol <100 mg/dL 51 43 Non HDL Cholesterol <130 mg/dL 88 90 History Problem name: diabetes Quality: type 2, Severity: sugars in Duration: dx 1999 Context: 1) eye exam, told no DM changes, around 04/2021 2) no hx [place], stroke, no known renal disease, 3) no resting acral dysesthesias. Nonsmoker 4) severe BENEDICT, uses CPAP every day, says it helps 5) thyroid CA, history shown below, taking 125 mcg daily 6) hx COVID dx [facility] 04/29/20 Modifying factors: 1) Basaglar 24 units at bed, meal Humalog=01-30-11, metformin ER 850mg 3x/d, Farxiga 10mg in AM 2) pravastatin 80mg at bed, 3) losartan 100mg/d 4) levothyroxine 125mcg daily Associated symptoms: says feels good. s/p COVID vaccine x 3 Thyroid CA History Surgery (05/17/10): total thyroidectomy, Dr. Julio Cesar Moore (02/08/12): right modified radical neck dissection to remove lymph nodes, Dr. Jef Hardy Pathology (05/17/10): papillary thyroid CA, follicular variant, multifocal bilateral, 1.5cm on right, 0.3 and 0.4cvm on left, capsular invasion present, but no invasion outside the thyroid capsule. T1b, N0, MX (11/24/11): right neck node FNA, positive for malignant cells: metastatic papillary thyroid CA (02/08/12): right mod rad neck dissection: metastatic papillary thyroid CA, 4 of 14 nodes positive, no extranodal extension identified, largest involved node 1.2cm diameter Scan (09/23/10): post-therapy 131-Iodine scan, focal uptake in lower neck, no evidence of metastasis, Thyrogen stim (10/16/12): Thyrogen stimulated 123-Iodine body scan, no evidence of local or distant metastasis [facility] (09/15/10): treatment 101.0 mCi 131-Iodine, Thyrogen stim Thyroglobulin (06/02/10): TG <0.5 ng/ml, Gh=086 IU/ml (09/15/10): TG QUINTIN=6.0 ng/ml, Ab=20 U/ml, Thyrogen stim (01/03/11): TG QUINTIN=3.3 ng/ml, Ab=26 U/ml (08/01/11): TG QUINTIN=3.0 ng/ml, Ab=17 U/ml (02/01/12): TG QUINTIN=2.6 ng/ml, Ab=19 U/ml (06/11/12): TG QUINTIN=12.0 ng/ml, Ub=088 IU/ml done at [facility] (doubt these results) (10/18/12): TG QUINTIN=3.0 ng/ml, Ab=10.3 U/ml, Thyrogen stim (11/04/12): TG QUINTIN=2.9 ng/ml, Ab=13.2 U/ml (04/29/13): TG QUINTIN=2.5 ng/ml, Ab=10.0 U/ml (11/28/13): TG QUINTIN=2.5 ng/ml, Ab=15.0 U/ml (06/12/14): TG QUINTIN=2.8 ng/ml, Ab=14.0 U/ml (12/11/14): TG QUINTIN=2.6 ng/ml, Ab=14.4 U/ml (06/21/15): TG QUINTIN=2.50 ng/ml, Ab=19.0 U/ml (12/27/15): TG QUINTIN=2.50 ng/ml, Ab=24.0 U/ml (12/27/16): TG QUINTIN=2.60 ng/ml, Ab=19.0 U/ml (06/27/17): TG QUINTIN=2.70 ng/ml, Ab=19 U/ml Component Thyroglobulin TG Antibody Screen Latest Ref Rng & Units 1.6 - 59.9 ng/mL <14.4 IU/mL 01/01/2018 <0.2 (L) 86.0 (H) 06/06/18 QUINTIN at [facility] 2.20 20.0 12/17/18 <0.2 77.1 01/30/19 QUINTIN at [facility] 2.00 21.0 07/03/2019 QUINTIN at [facility] 2.80 21.0 01/06/2020 QUINTIN at [facility] 2.70 28.0 01/06/2020 QUINTIN at [facility] 2.50 30.0 01/25/2021 QUINTIN at [facility] 2.20 23.0 08/12/2021 QUINTIN at [facility] 2.80 28.0 01/31/2022 QUINTIN at [facility] 2.20 25.0 Vitamin D Component Vitamin D 25 Hydroxy Latest Ref Rng 31.0 - 80.0 ng/mL 04/29/2013 48.5 11/28/2013 38.5 06/12/2014 33.4 12/11/2014 33.6 06/21/2015 37.2 Ultrasound (06/24/10): no suspicious adenopathy along great vessels or in lateral neck on either side. No masses in thyroid bed. (08/14/11): suspicious nodule right neck at level of bifurcation, is 1.0 x 0.8 x 0.7cm, nonvascular, needs FNA (08/30/12): no suspicious adenopathy along great vessels or in lateral neck on either side. No masses in thyroid bed. (06/23/13): no suspicious adenopathy along great vessels or in lateral neck on either side. No masses in thyroid bed. (07/26/15): no suspicious adenopathy along great vessels or in lateral neck on either side. No masses in thyroid bed. (07/31/16): no suspicious adenopathy along great vessels or in lateral neck on either side. No masses in thyroid bed. (08/01/17): no suspicious adenopathy along great vessels or in lateral neck on either side. No masses in thyroid bed. (07/24/18): no suspicious adenopathy along great vessels or in lateral neck on either side. No masses in thyroid bed. (08/08/19): no suspicious adenopathy along great vessels or in lateral neck on either side. No masses in thyroid bed. (08/25/20): no suspicious adenopathy along great vessels or in lateral neck on either side. No masses in thyroid bed. (09/16/21): no suspicious adenopathy along great vessels or in lateral neck on either side. No masses in thyroid bed. ROS PHYSICAL EXAM PAST MEDICAL HISTORY PAST MEDICAL HISTORY Diagnosis Date Diabetes (HCC) BENEDICT (obstructive sleep apnea) 05/03/2011 Postsurgical hypothyroidism Thyroid cancer (HCC) PAST SURGICAL HISTORY PAST SURGICAL HISTORY Procedure Laterality Date OTHER 2011 Neck dissection THYROIDECTOMY TOTAL/COMPLETE 2009 FAMILY HISTORY No family history on file. SOCIAL HISTORY Social History Tobacco Use Smoking status: Former Packs/day: 0.50 Years: 8.00 Pack years: 4.00 Types: Cigarettes Quit date: 12/26/1979 Years since quittin.2 Smokeless tobacco: Never Substance Use Topics Alcohol use: No Drug use: No MEDICATIONS Prior to Admission Medications: Current Outpatient Prescriptions on File Prior to Visit: levothyroxine (SYNTHROID) 150 mcg tablet Take 1 tablet by mouth once daily. glyBURIDE-metFORmin (GLUCOVANCE) 5-500 mg per tablet Take 2 tablets by mouth twice daily with meals. aspirin, enteric coated (ECOTRIN LOW STRENGTH) 81 mg EC tablet Take 1 tablet by mouth once daily. pravastatin (PRAVACHOL) 80 mg ORAL tablet Take 1 tablet by mouth once daily. zolpidem (AMBIEN) 10 mg ORAL Tab Take 1 tablet by mouth at bedtime as needed. for insomnia. COMPOUNDED PRESCRIPTION CPAP setting at 5 cm H2O with heated humidification mask (per patient preference) and lifetime supplies DX BENEDICT 327.23 Ferrous Sulfate (IRON) 325 mg (65 mg iron) ORAL tablet Take 1 tablet by mouth twice daily. lisinopril 10 mg ORAL tablet Take one(1) tablet daily. valsartan (DIOVAN) 160 mg ORAL tablet Take one(1) tablet daily. sitagliptin (JANUVIA) 100 mg ORAL tablet Take one(1) tablet daily. No current facility-administered medications on file prior to visit. ALLERGIES ALLERGIES Allergen Reactions Environmental [Othe* Other: See Comments Contact with cold air or cold objects causes a rash. tf poc documented in this encounter [facility] 01-31-2022 Miscellaneous Notes [facility] Family Medicine office in [place], [place] Calling regarding patient's lab orders. Patient states she needs thyroglobulin (red top tubes)(QUINTIN) completed but there is no order in patient's chart. radio television technical director states this is an orderable test and is requesting a lab ordered for thyroglobulin (red top tubes) (QUINTIN). [facility] office in [place] can be reached at [phone]. documented in this encounter [facility] 12-28-2021 Instructions Liliana Jama MD - 12/28/2021 4:42 PM EDT Assessment / Plan Problem: 1) Diabetes type 2. Sugars appear to be reasonable. 2) Thyroid CA, TG by QUINTIN stable, Ab dropping some. Next ultrasound Aug 2022, will need to be in person visit. 3) s/p COVID vaccination x 4 (Pfizer). COVID April 2020. Treatment / Plan: 1) contiue on your current diabetes medications, and on your current levothyroxine dose of 125 mcg daily 2) return to [place] 3 months as planned, with blood test before your visit. Liliana Jama MD documented in this encounter [facility] 12-28-2021 History of Presen t illness Narrative Assessment / Plan Problem: 1) Diabetes type 2. Sugars appear to be reasonable. 2) Thyroid CA, TG by QUINTIN stable, Ab dropping some. Next ultrasound Aug 2022, will need to be in person visit. 3) s/p COVID vaccination x 4 (Pfizer). COVID April 2020. Treatment / Plan: 1) contiue on your current diabetes medications, and on your current levothyroxine dose of 125 mcg daily 2) return to [place] in 3 months as planned, with blood test before your visit. Liliana Jama MD Data Review: Component TSH Free T4 Ref Rng 0.400 - 5.500 uU/mL 0.9 - 1.7 ng/dL 12/29/2015 1.050 06/27/2016 0.200 (L) 12/27/2016 0.291 (L) 06/27/2017 0.244 (L) 01/01/2018 0.054 (L) 1.7 05/14/2018 0.194 (L) 2.500 1.4 01/28/19 2.480 1.3 07/03/2019 2.940 1.5 07/20/2020 1.860 1.5 01/25/2021 2.030 1.5 08/12/2021 0.996 1.5 .............................. .............................. ............... Component Hemoglobin A1C (POCT) Latest Ref Rng & Units 4.2 - 5.6 % 04/18/2018 8.7 (A) 07/24/2018 7.0 (A) 10/25/2018 6.5 (A) 01/28/2019 7.0 (A) 05/08/19 7.1 08/08/19 7.4 01/01/2020 7.0 05/12/2020 6.5 08/25/20 7.2 01/25/21 6.9 05/16/2021 6.5 09/16/21 6.3 12/28/21 6.4 Component Albumin/Creat Ratio Latest Ref Rng & Units 0 - 30 mg/g 05/14/2018 <8 08/08/19 <10 Component BUN Creatinine Latest Ref Rng & Units 7 - 21 mg/dL 0.58 - 0.96 mg/dL 01/19/2012 29 (H) 0.95 05/14/2018 20 0.97 (H) 07/03/2019 25 (H) 1.11 (H) Component Latest Ref Rng & Units 05/14/2018 07/03/2019 Bilirubin, Total 0.2 - 1.3 mg/dL 0.3 0.2 Alkaline Phosphatase 34 - 123 U/L 73 83 AST 13 - 35 U/L 14 10 (L) ALT 7 - 38 U/L 15 12 Component Latest Ref Rng & Units 05/14/2018 07/03/2019 Cholesterol, Total <200 mg/dL 119 121 Triglyceride <150 mg/dL 185 (H) 233 (H) HDL Cholesterol >39 mg/dL 31 (L) 31 (L) LDL Cholesterol <100 mg/dL 51 43 Non HDL Cholesterol <130 mg/dL 88 90 Vitals 10/25/2018 01/28/2019 05/08/2019 08/08/2019 SITTING BP 148/75 165/73 148/72 148/76 History Problem name: diabetes Quality: type 2, Severity: sugars in Duration: dx 1999 Context: 1) eye exam, told no DM changes, around 04/2021 2) no hx DE, stroke, no known renal disease, 3) no resting acral dysesthesias. Nonsmoker 4) severe BENEDICT, uses CPAP every day, says it helps 5) thyroid CA, history shown below, taking 125 mcg daily 6) hx COVID dx [place] 04/29/20 Modifying factors: 1) Basaglar 26 units at bed, meal Humalog=01-30-11, metformin ER 850mg 3x/d, Farxiga 10mg in AM 2) pravastatin 80mg at bed, 3) losartan 100mg/d 4) levothyroxine 125mcg daily Associated symptoms: says feels good. s/p COVID vaccine x 3 Thyroid CA History Surgery (05/17/10): total thyroidectomy, Dr. Julio Cesar Moore (02/08/12): right modified radical neck dissection to remove lymph nodes, Dr. Jef Hardy Pathology (05/17/10): papillary thyroid CA, follicular variant, multifocal bilateral, 1.5cm on right, 0.3 and 0.4cvm on left, capsular invasion present, but no invasion outside the thyroid capsule. T1b, N0, MX (11/24/11): right neck node FNA, positive for malignant cells: metastatic papillary thyroid CA (02/08/12): right mod rad neck dissection: metastatic papillary thyroid CA, 4 of 14 nodes positive, no extranodal extension identified, largest involved node 1.2cm diameter Scan (09/23/10): post-therapy 131-Iodine scan, focal uptake in lower neck, no evidence of metastasis, Thyrogen stim (10/16/12): Thyrogen stimulated 123-Iodine body scan, no evidence of local or distant metastasis GARDINER (09/15/10): treatment 101.0 mCi 131-Iodine, Thyrogen stim Thyroglobulin (06/02/10): TG <0.5 ng/ml, Yi=677 IU/ml (09/15/10): TG QUINTIN=6.0 ng/ml, Ab=20 U/ml, Thyrogen stim (01/03/11): TG QUINTIN=3.3 ng/ml, Ab=26 U/ml (08/01/11): TG QUINTIN=3.0 ng/ml, Ab=17 U/ml (02/01/12): TG QUINTIN=2.6 ng/ml, Ab=19 U/ml (06/11/12): TG QUINTIN=12.0 ng/ml, Sp=827 IU/ml done at [facility] (doubt these results) (10/18/12): TG QUINTIN=3.0 ng/ml, Ab=10.3 U/ml, Thyrogen stim (11/04/12): TG QUINTIN=2.9 ng/ml, Ab=13.2 U/ml (04/29/13): TG QUINTIN=2.5 ng/ml, Ab=10.0 U/ml (11/28/13): TG QUINTIN=2.5 ng/ml, Ab=15.0 U/ml (06/12/14): TG QUINTIN=2.8 ng/ml, Ab=14.0 U/ml (12/11/14): TG QUINTIN=2.6 ng/ml, Ab=14.4 U/ml (06/21/15): TG QUINTIN=2.50 ng/ml, Ab=19.0 U/ml (12/27/15): TG QUINTIN=2.50 ng/ml, Ab=24.0 U/ml (12/27/16): TG QUINTIN=2.60 ng/ml, Ab=19.0 U/ml (06/27/17): TG QUINTIN=2.70 ng/ml, Ab=19 U/ml Component Thyroglobulin TG Antibody Screen Latest Ref Rng & Units 1.6 - 59.9 ng/mL <14.4 IU/mL 01/01/2018 <0.2 (L) 86.0 (H) 06/06/18 QUINTIN at [facility] 2.20 20.0 12/17/18 <0.2 77.1 01/30/19 QUINTIN at [facility] 2.00 21.0 07/03/2019 QUINTIN at [facility] 2.80 21.0 01/06/2020 QUINTIN at [facility] 2.70 28.0 01/06/2020 QUINTIN at [facility] 2.50 30.0 01/25/2021 QUINTIN at [facility] 2.20 23.0 08/12/2021 QUINTIN at [facility] 2.80 28.0 Vitamin D Component Vitamin D 25 Hydroxy Latest Ref Rng 31.0 - 80.0 ng/mL 04/29/2013 48.5 11/28/2013 38.5 06/12/2014 33.4 12/11/2014 33.6 06/21/2015 37.2 Ultrasound (06/24/10): no suspicious adenopathy along great vessels or in lateral neck on either side. No masses in thyroid bed. (08/14/11): suspicious nodule right neck at level of bifurcation, is 1.0 x 0.8 x 0.7cm, nonvascular, needs FNA (08/30/12): no suspicious adenopathy along great vessels or in lateral neck on either side. No masses in thyroid bed. (06/23/13): no suspicious adenopathy along great vessels or in lateral neck on either side. No masses in thyroid bed. (07/26/15): no suspicious adenopathy along great vessels or in lateral neck on either side. No masses in thyroid bed. (07/31/16): no suspicious adenopathy along great vessels or in lateral neck on either side. No masses in thyroid bed. (08/01/17): no suspicious adenopathy along great vessels or in lateral neck on either side. No masses in thyroid bed. (07/24/18): no suspicious adenopathy along great vessels or in lateral neck on either side. No masses in thyroid bed. (08/08/19): no suspicious adenopathy along great vessels or in lateral neck on either side. No masses in thyroid bed. (08/25/20): no suspicious adenopathy along great vessels or in lateral neck on either side. No masses in thyroid bed. (09/16/21): no suspicious adenopathy along great vessels or in lateral neck on either side. No masses in thyroid bed. ROS PHYSICAL EXAM PAST MEDICAL HISTORY PAST MEDICAL HISTORY Diagnosis Date Diabetes (HCC) BENEDICT (obstructive sleep apnea) 05/03/2011 Postsurgical hypothyroidism Thyroid cancer (HCC) PAST SURGICAL HISTORY PAST SURGICAL HISTORY Procedure Laterality Date OTHER 2011 Neck dissection THYROIDECTOMY TOTAL/COMPLETE 2009 FAMILY HISTORY No family history on file. SOCIAL HISTORY Social History Tobacco Use Smoking status: Former Smoker Packs/day: 0.50 Years: 8.00 Pack years: 4.00 Types: Cigarettes Quit date: 12/26/1979 Years since quittin.0 Smokeless tobacco: Never Used Substance Use Topics Alcohol use: No Drug use: No MEDICATIONS Prior to Admission Medications: Current Outpatient Prescriptions on File Prior to Visit: levothyroxine (SYNTHROID) 150 mcg tablet Take 1 tablet by mouth once daily. glyBURIDE-metFORmin (GLUCOVANCE) 5-500 mg per tablet Take 2 tablets by mouth twice daily with meals. aspirin, enteric coated (ECOTRIN LOW STRENGTH) 81 mg EC tablet Take 1 tablet by mouth once daily. pravastatin (PRAVACHOL) 80 mg ORAL tablet Take 1 tablet by mouth once daily. zolpidem (AMBIEN) 10 mg ORAL Tab Take 1 tablet by mouth at bedtime as needed. for insomnia. COMPOUNDED PRESCRIPTION CPAP setting at 5 cm H2O with heated humidification mask (per patient preference) and lifetime supplies DX BENEDICT 327.23 Ferrous Sulfate (IRON) 325 mg (65 mg iron) ORAL tablet Take 1 tablet by mouth twice daily. lisinopril 10 mg ORAL tablet Take one(1) tablet daily. valsartan (DIOVAN) 160 mg ORAL tablet Take one(1) tablet daily. sitagliptin (JANUVIA) 100 mg ORAL tablet Take one(1) tablet daily. No current facility-administered medications on file prior to visit. ALLERGIES ALLERGIES Allergen Reactions Environmental [Othe* Other: See Comments Contact with cold air or cold objects causes a rash. tf poc documented in this encounter [facility] Diagnosis Thyroid cancer (HCC)- Primary Malignant neoplasm of thyroid gland Hypothyroidism, unspecified type Type 2 diabetes mellitus without complication, with long-term current use of insulin (HCC) documented in this encounter [facility] note* Diagnosis Thyroid cancer (HCC)- Primary Malignant neoplasm of thyroid gland documented in this encounter [facility] note* Diagnosis Type 2 diabetes mellitus without complication, with long-term current use of insulin (HCC)- Primary Thyroid cancer (HCC) Malignant neoplasm of thyroid gland Type 2 diabetes mellitus without complications (HCC) Type II or unspecified type diabetes mellitus without mention of complication, not stated as uncontrolled documented in this encounter [facility] note* Diagnosis Thyroid ca (HCC)- Primary Malignant neoplasm of thyroid gland Type 2 diabetes mellitus without complication, with long-term current use of insulin (HCC) Hypothyroidism, unspecified type documented in this encounter [facility] note* Diagnosis Type 2 diabetes mellitus without complication, with long-term current use of insulin (HCC)- Primary [facility] Diagnosis Type 2 diabetes mellitus without complication, with long-term current use of insulin (HCC)- Primary Hypothyroidism, unspecified type Thyroid cancer (HCC) Malignant neoplasm of thyroid gland Type 2 diabetes mellitus with hyperglycemia, with long-term current use of insulin (HCC) documented in this encounter [facility] Summary Purpose Family History No Family History Records FoundUnknown Family Member Name Dates Details Family history of hypertensi on: Mother(V17.49, Z82.49) Status:Active Family history of malignant neoplasm of kidney: Other(V16.51, Z80.51) Status:Active Unknown Family Member Name Dates Details Family history of malignant neoplasm of kidney: Other(V16.51, Z80.51) Status:Active Family history of hypertensi on: Mother(V17.49, Z82.49) Status:Active Advance Directives No Advanced Directives Records FoundNo Advanced Directives Records FoundNo Advanced Directives Records FoundNo Advanced Directives Records FoundNo Advanced Directives Records FoundNo Advanced Directives Records Found Additional Source Comments INFORMATION SOURCE (unrecogn ized section and content) DATE CREATED AUTHOR AUTHOR'S ORGANIZ ATION 02/05/2021 [employer] DATE CREATED AUTHOR AUTHOR'S ORGANIZ ATION 03/30/2021 [facility] DATE CREATED AUTHOR AUTHOR'S ORGANIZ ATION 09/08/2022 [facility] DATE CREATED AUTHOR AUTHOR'S ORGANIZ ATION 06/14/2023 [facility] DATE CREATED AUTHOR AUTHOR'S ORGANIZ ATION 09/19/2023 [facility] Source Comments (unrecognize d section and content) In the event this informatio n is protected by the Federal Confidentiality of Alcohol and Drug Abuse Patient Records regulations: The Federal rules restrict any use of the information to criminally investigate or prosecute any alcohol or drug abuse patient.[facility] the event this information is protected by the Federal Confidentiality of Alcohol and Drug Abuse Patient Records regulations: The Federal rules restrict any use of the information to criminally investigate or prosecute any alcohol or drug abuse patient.[facility] the event this information is protected by the Federal Confidentiality of Alcohol and Drug Abuse Patient Records regulations: The Federal rules restrict any use of the information to criminally investigate or prosecute any alcohol or drug abuse patient.[facility] the event this information is protected by the Federal Confidentiality of Alcohol and Drug Abuse Patient Records regulations: The Federal rules restrict any use of the information to criminally investigate or prosecute any alcohol or drug abuse patient.[facility] the event this information is protected by the Federal Confidentiality of Alcohol and Drug Abuse Patient Records regulations: The Federal rules restrict any use of the information to criminally investigate or prosecute any alcohol or drug abuse patient.[facility] the event this information is protected by the Federal Confidentiality of Alcohol and Drug Abuse Patient Records regulations: The Federal rules restrict any use of the information to criminally investigate or prosecute any alcohol or drug abuse patient.[facility] the event this information is protected by the Federal Confidentiality of Alcohol and Drug Abuse Patient Records regulations: The Federal rules restrict any use of the information to criminally investigate or prosecute any alcohol or drug abuse patient.[facility] the event this information is protected by the Federal Confidentiality of Alcohol and Drug Abuse Patient Records regulations: The Federal rules restrict any use of the information to criminally investigate or prosecute any alcohol or drug abuse patient.[facility] the event this information is protected by the Federal Confidentiality of Alcohol and Drug Abuse Patient Records regulations: The Federal rules restrict any use of the information to criminally investigate or prosecute any alcohol or drug abuse patient.[facility] the event this information is protected by the Federal Confidentiality of Alcohol and Drug Abuse Patient Records regulations: The Federal rules restrict any use of the information to criminally investigate or prosecute any alcohol or drug abuse patient.[facility] Reason for Visit (unrecogniz ed section and content) Reason Comments Lab Orders Reason Comments Thyroid Problem Diabetes Reason Comments Thyroid Cancer Reason Comments Diabetes Thyroid Cancer Reason Comments Orders Reason Comments Medication Problem Reason Comments Appointment Care Teams (unrecognized sec tion and content) Unattended Ground Sensor Specialist Relationship Specialty Start Date End Date Steve Cheek [address] [place] [address] [place] [address] PCP - General Family Practice 06/06/10 Unattended Ground Sensor Specialist Relationship Specialty Start Date End Date Steve Cheek [address] [place] [address] [place] [address] PCP - General Family Practice 06/06/10 Unattended Ground Sensor Specialist Relationship Specialty Start Date End Date Steve Cheek [address] [place] [address] [place] [address] PCP - General Family Medicine 06/06/10 Unattended Ground Sensor Specialist Relationship Specialty Start Date End Date Steve Cheek [address] [place] [address] [place] [address] PCP - General Family Medicine 06/06/10 Unattended Ground Sensor Specialist Relationship Specialty Start Date End Date Steve Cheek [address] [place] [address] [place] [phone] PCP - General Family Medicine 06/06/10 Unattended Ground Sensor Specialist Relationship Specialty Start Date End Date Steve Cheek [address] [place] [phone] PCP - General [facility] 06/06/10 Unattended Ground Sensor Specialist Relationship Specialty Start Date End Date Steve Cheek [address] [place] [phone] PCP - General [facility] 06/06/10 Unattended Ground Sensor Specialist Relationship Specialty Start Date End Date Steve Cheek [address] [place] [phone] PCP - General Family [facility] 06/06/10 FOR RECORDS PERTAINING TO PATIENTS WHO ARE OR HAVE BEEN ENROLLED IN A CHEMICAL DEPENDENCY/SUBSTANCEABUSE PROGRAM, SOME INFORMATION MAY BE OMITTED. This clinical summary was aggregated from multiple sources. Caution should be exercised in using it in the provision of clinical care. This summary normalizes information from multiple sources, and as a consequence, information in this document may materially change the coding, format and clinical context of patient data. In addition, data may be omitted in some cases. CLINICAL DECISIONS SHOULD BE BASED ON THE PRIMARY CLINICAL RECORDS. [facility]. provides no warranty or guarantee of the accuracy or completeness of information in this document.
== END | disposition home or self-care (01) ==
LOC: OPBI 10:28
PROVIDERS: PCP Internal Medicine; Referring Provider Internal Medicine; Visit Provider Internal Medicine
DX: Z12.31 Encounter for screening mammogram for malignant neoplasm of breast (principal)
CPT/HCPCS: 77063; 77067

== ENCOUNTER → 2024-10-13 | Outpatient (CLI) | payer MEDICARE, OTHER, SELFPAY ==
--- NOTE | 2024-10-13 12:45 | BI_ITS ---
EXAM: SCRN MAMM (CAD)W/PRATIK BILAT 10/13/2024 CLINICAL HISTORY: F, Age 73 y/o , BREAST CANCER SCREENING TECHNIQUE: Bilateral Diagnostic digital breast tomosynthesis with 2D and 3D images. Computer aided detection. COMPARISON: Prior exam(s) dated mammogram dated 10/05/2023. FINDINGS: TISSUE DENSITY: The breast tissue is almost entirely fatty. Bilateral Breast Mammographic Findings: There are no suspicious masses, suspicious clustered microcalcifications, architectural distortion or secondary signs of malignancy identified in either breast. Benign-appearing secretory type calcifications and round microcalcifications are seen in both breasts. BI/SCRN MAMM (CAD)W/PRATIK BILAT IMPRESSION: Right Breast: BIRADS 2 BENIGN FINDING. Left Breast: BIRADS 2 BENIGN FINDING. OVERALL FINAL ASSESSMENT: BIRADS 2 BENIGN FINDING. RECOMMENDATION: Routine annual follow-up in 1 Year A letter with findings and recommendations will be mailed to the patient. Reading Location: [id number]
[2024-10-13 15:49] LABS: Microalbumin,Random Urine 16.6 mg/L (NO RANGE EST.); Microalbumin:Creatinine Ratio 193.7 mg/g CRE
[2024-10-13 17:06] LABS: ALB/GLOB Ratio 1.3 RATIO (0.9-2.4); AST(SGOT) 17 U/L (<=31); Alanine Aminotransfer ALT/SGPT 12 U/L (<=34); Albumin, Serum 4.4 g/dL (3.4-4.8); Alkaline Phosphatase 66 U/L (35-104); Anion Gap 16 (5-15); BUN 23 mg/dL (4-19); BUN/Creat Ratio 19.2 RATIO (10-20); Calcium,Total 10.2 mg/dL (7.6-11.0); Carbon Dioxide 24.6 mmol/L (21.0-32.0); Chloride 98 mmol/L (98-108); Creatinine, Serum 1.19 mg/dL (0.70-1.20); EST Glomerular Filtration Rate 48 (>60); Globulin 3.5 g/dL (2.2-4.2); Glucose 149 mg/dL (70-99); Potassium 4.3 mmol/L (3.3-5.1); Protein, Total 7.9 g/dL (5.9-8.4); Sodium Level 139 mmol/L (133-145); Total Bilirubin 0.17 mg/dL (0.00-1.30); Vitamin D,25 Hydroxy 52.2 ng/mL (30-100)
[2024-10-13 21:15] LABS: Cholesterol 156 mg/dL (<=200); High Density Lipoprotein 42 mg/dL; Low Density Lipoprotein Calc. 66 mg/dL; Triglycerides 237 mg/dL; Very Low Density Lipoprotein 47 mg/dL (5-40); cholesterol:hdl ratio screen 3.68
== END | disposition home or self-care (01) ==
PROVIDERS: Internal Medicine Endocrinology, Diabetes & Metabolism; PCP Internal Medicine; Referring Provider Internal Medicine; Visit Provider Internal Medicine
DX: Z12.31 Encounter for screening mammogram for malignant neoplasm of breast (principal); C73 Malignant neoplasm of thyroid gland; E11.22 Type 2 diabetes mellitus with diabetic chronic kidney disease; N18.30 Chronic kidney disease, stage 3 unspecified; E78.2 Mixed hyperlipidemia; E03.9 Hypothyroidism, unspecified
CPT/HCPCS: 36415; 77063; 77067; 80053; 80061; 82043; 82306; 82570; 84432; 84443; 86800

== ENCOUNTER → 2024-12-31 | Outpatient (CLI) | payer MEDICARE, OTHER, SELFPAY ==
--- NOTE | 2024-12-31 12:40 | RAD_ITS ---
PROCEDURE: KNEE 3 VIEWS 12/31/2024 REASON FOR EXAM: R KNEE PAIN TECHNIQUE: Standing AP and lateral views of the right knee were obtained. A sunrise view was obtained. COMPARISON: Standing AP view of both knees, same day. FINDINGS: There is no evidence of fracture or dislocation. There is moderate arthritis of the patellofemoral joint. There is mild arthritis of the medial joint space compartment of the knee. There is mild arthritis of the lateral joint space compartment of the knee. There is a large knee joint effusion. There is calcification within the quadriceps tendon. There are no soft tissue abnormalities. RAD/Knee 3 Views IMPRESSION: [id number] tricompartment arthritis with a large knee joint effusion. Reading Location: [place] [id number]
--- NOTE | 2024-12-31 12:40 | RAD_ITS ---
PROCEDURE: KNEES STANDING AP BILATERAL 12/31/2024 REASON FOR EXAM: RIGHT KNEE PAIN, BILA ARTHRITIS KNEES TECHNIQUE: 1 view of the right knee COMPARISON: 12/31/2024. FINDINGS: Mild osteopenia of the visualized bones. Degenerative joint disease. No fracture or dislocation is seen. No lytic or blastic bone lesion is noted. RAD/Knees Standing AP Bilateral IMPRESSION: Moderate tricompartmental changes of degenerative joint disease. No radiographic evidence of an acute bone abnormality. Reading [facility]
== END | disposition home or self-care (01) ==
LOC: MTRAD 12:40
PROVIDERS: PCP Internal Medicine; Referring Provider Internal Medicine; Visit Provider Internal Medicine
DX: M25.561 Pain in right knee (principal)
CPT/HCPCS: 73562; 73565

== ENCOUNTER → 2025-04-08 | Outpatient (CLI) | payer MEDICARE, OTHER, SELFPAY ==
--- NOTE | 2025-04-08 15:13 | US_ITS ---
PROCEDURE: THYROID 04/08/2025 REASON FOR EXAM: ASSESS THYROID REMNANT/LYMPHADENOPATHY TECHNIQUE: Procedure Code: USTHY Modality: US Procedure: THYROID COMPARISON: None FINDINGS: The patient is status post total thyroidectomy. No residual thyroid tissue or lymph node seen. US/Thyroid IMPRESSION: Status post total thyroidectomy. No residual thyroid tissue or lymph nodes are seen. RECOMMENDATION: Based on most suspicious nodule. Nodule size = largest diameter Only evaluate nodule if =>5 mm. Growth > 20% in 2 dimensions = worsening. Follow up to 4 nodules. Recommend biopsy for no more than 2 nodules. Reading Location: [place] [address]
== END | disposition home or self-care (01) ==
LOC: US 15:13
PROVIDERS: PCP Internal Medicine; Referring Provider Internal Medicine Endocrinology, Diabetes & Metabolism; Visit Provider Internal Medicine Endocrinology, Diabetes & Metabolism
DX: C73 Malignant neoplasm of thyroid gland (principal); E89.0 Postprocedural hypothyroidism
CPT/HCPCS: 76536